=== PATIENT | male | born 1955 | race Caucasian/White ===

== ENCOUNTER → 2018-02-07 01:48 | Outpatient (CLI) | payer BC, SELFPAY ==
[2018-02-07 10:43] LABS: Glucose 96 mg/dL (70-100)
== END ==
PROVIDERS: PCP Family Medicine; Visit Provider Family Medicine
DX: E74.39 Other disorders of intestinal carbohydrate absorption (principal)
CPT/HCPCS: 36415; 82947

== ENCOUNTER 2018-05-02 09:27 | Day surgery (SDC) | payer BC, SELFPAY ==
[2018-05-02 09:43] VITALS: BP 133/83; PULSE 58; RESP 16; TEMP 36.6; O2SAT 98
[2018-05-02] MEDS: Lactated Ringers 1,000 ML 80 ML IV (10:15)
[2018-05-02] MEDS: Bupivacaine 0.25% Pres-Free 30 ML VIAL (12:26)
[2018-05-02 12:39] VITALS: BP 141/82; PULSE 57; RESP 11; TEMP 36.5; O2SAT 99
[2018-05-02 12:44] VITALS: BP 146/74; PULSE 63; RESP 17; TEMP 36.5; O2SAT 95
--- NOTE | 2018-05-02 12:46 | W.PM.DSUDISC ---
Discharge Plan Disposition Patient Disposition: HOME Condition: Good Discharge Details Reason For Visit: R Knee Arthrofibrosis Attending Provider: Dom Khan Primary Care Provider: Ajit Galo Home Meds and New Rx's Prescriptions: New ibuprofen 600 mg tablet 600 mg PO TID PRNQty: 90 RF: 3 acetaminophen 500 mg capsule 1,000 mg PO Q8H PRN (Reason: pain) Qty: 90 RF: 0 oxycodone 5 mg tablet 5 mg PO Q4H Qty: 12 RF: 0 Continue multivitamin 1 EACH tablet 1 tab PO daily prn RF: 0 nitroglycerin [Nitrostat] 0.4 MG tablet, sublingual 0.4 mg Sublingual q 5 mins MDD 3 PRNQty: 25 RF: 0 lisinopril 5 MG tablet 1 tab PO DAILY Qty: 90 RF: 4 Metoprolol Succinate 50 MG TAB.ER.24H 1 tab PO DAILY Qty: 90 RF: 4 atorvastatin 80 MG tablet 1 tab PO DAILY Qty: 90 RF: 3 aspirin [Aspirin Low-Strength] 81 MG tablet,chewable 1 tab PO BID Qty: 80 RF: 3 acetaminophen [Mapap Extra Strength] 500 MG tablet 1,000 mg PO Q8H Qty: 100 RF: 3 Discharge Instructions Stand Alone Forms: Erin Knee Arthroscopy Activity:: Elevate Remove Dressings/Wound Care:: 72 hours Shower/Bathe:: 72 hours Diet:: As Tolerated Discharge Orders Discharge Orders: Discharge Order (Routine); Ordered 05/02/18 Ordered By: Dom Khan DS: Diagnosis Discharge Diagnosis (1) Rupture of right quadriceps tendon: Status: Acute (2) Arthrofibrosis of knee joint: Status: Acute
[2018-05-02 12:49] VITALS: BP 126/75; PULSE 64; RESP 14; TEMP 36.5; O2SAT 97
[2018-05-02 13:04] VITALS: BP 135/75; PULSE 53; RESP 11; TEMP 36.5; O2SAT 100
[2018-05-02 13:54] VITALS: BP 124/77; PULSE 60; RESP 16; TEMP 36.3; O2SAT 95
--- NOTE | 2018-05-04 14:23 | ROE_ITS ---
DATE OF SURGERY: May 02, 2018 PREOPERATIVE DIAGNOSIS: Arthrofibrosis of the right knee. POSTOPERATIVE DIAGNOSIS: Same. SURGERY: Arthroscopic synovectomy, lysis of adhesions, and manipulation under anesthesia. SURGEON: Dom Khan M.D. ANESTHESIA: General. FINDINGS: There was significant scar tissue seen within the right knee. This scar tissue was resect ed. Preoperative flexion was about 90 to 95 degrees at most and the postoperative flexion was 115 de grees. ESTIMATED BLOOD LOSS: 10 cc COMPLICATIONS: None. DISPOSITION: The patient was awakened from anesthesia and taken to PACU in a stable condition. INDICATION FOR PROCEDURE: Ortiz is a 63-year-old who I performed a knee replacement on some months ag o. In his recovery he ruptured his quadriceps. This was treated with surgical repair. Unfortunatel y, his range of motion suffered and he has a stiff knee in flexion. He tried multiple rounds of Phys ical Therapy but was still unable to obtain the flexion he desired. Therefore, I offered an arthrosc opic release of adhesions with manipulation. I discussed the risks of the procedure to include bleed ing, infection, pain, stiffness, damage to nerves and vessels, and blood clot. Despite these risks, he elected to proceed. PROCEDURE DESCRIPTION: Ortiz was greeted in the preoperative holding area. Identity was confirmed an d the correct side was identified and marked. The consent was reviewed with the patient and signed. The History and Physical was updated. He was taken back to the Operating Room and placed in a supin e position. A general anesthetic was administered. Preoperative range of motion was tested and he h ad about 90-95 degrees of flexion at most passively. I then prepped the right leg with ChloraPrep an d draped it in a standard fashion. Prophylactic antibiotics in the form of cefazolin were given. A time-out was performed for safe surgery. A standard lateral portal was then made for the scope. This was taken down sharply into the knee. I was able to get visualization of the knee which did show a significant amount of adhesions and synov itis within the knee itself. A superolateral portal was then made with a spinal needle. This provid ed an access point for egress of fluid but also for a working portal. Using a shaver I debrided down the anterior soft tissues to expose the polyethylene anteriorly and within the medial and lateral gu tters. An electrocautery device was also used to complete some of this debridement. I then worked c ircumferentially around the patella to clear off all the way down to the patellar edges. Finally, I moved into the suprapatellar pouch. There was a wall of adhesions seen between the undersurface of t he quadriceps mechanism as well as the anterior femur. Using electrocautery I transected this tissue and reestablished the suprapatellar pouch. Excess synovium was removed in this area as well. Any b ands of adhesions were also resected. After this was completed there were no signs of other adhesive tissues. The scope was then removed. With relaxation onboard I then performed a manipulation. I w as able to get him to 105 degrees easily. With some effort I was able to get him to 115 and then 120 degrees. After we were completed, 115 degrees was definitely achievable. The wounds were then clos ed with #4-0 nylon. At the end of the case all counts were correct. He was transferred back to the PACU in a stable condition.
== END 2018-05-02 14:25 | disposition home or self-care (01) ==
PROVIDERS: PCP Family Medicine; Visit Provider Student in an Organized Health Care Education/Training Program
PROC: (CPT 29870; principal; 2018-05-02 09:45)
PROC: (CPT 27570; 2018-05-02 09:45)
DX: M24.661 Ankylosis, right knee (principal); Z96.651 Presence of right artificial knee joint; S76.111S Strain of right quadriceps muscle, fascia and tendon, sequela; X58.XXXS Exposure to other specified factors, sequela
CPT/HCPCS: 29876; 27570; J0690; J1100; J1885; J2250; J2405

== ENCOUNTER 2018-07-23 09:30 | Outpatient (CLI) | payer BC, SELFPAY ==
[2018-07-23 12:08] LABS: CREATININE 1.04 mg/dL (0.70-1.30); Cholesterol 111 mg/dL (50-200); HDL Cholesterol 44 mg/dL (40-60); LDL CHOLESTEROL 54 mg/dL (<100); Potassium 4.7 mmol/L (3.5-5.1); Triglyceride 86 mg/dL (30-150)
[2018-07-24 08:48] LABS: PSA, Screening 1.4 ng/ml (0-4.5)
[2018-07-26 11:50] LABS: Testosterone, Free 4.95 ng/dL (3.67-13.9); Testosterone, Total 330 ng/dL (240-950)
== END 2018-07-23 09:50 ==
PROVIDERS: PCP Family Medicine; Visit Provider Family Medicine
DX: Z00.00 Encounter for general adult medical examination without abnormal findings
CPT/HCPCS: 36415; 80061; 83721; 84153; 84402; 84403; 82565; 84132

== ENCOUNTER 2018-08-18 15:14 | Outpatient (CLI) | payer BC, SELFPAY ==
--- NOTE | 2018-08-18 15:10 | DI.RAD_ITS ---
SYMPTOM/DIAGNOSIS: RT TKA, F/U RIGHT KNEE: Two views. Comparison is made with 10/04/17. There are again seen post surgical changes of a right total knee replacement. No evidence of hardware failure is seen. The bones are intact. IMPRESSION: Stable right TKR.
== END 2018-08-18 15:34 ==
PROVIDERS: PCP Family Medicine; Visit Provider Physician Assistant
DX: Z96.651 Presence of right artificial knee joint (principal); Z47.1 Aftercare following joint replacement surgery
CPT/HCPCS: 73560

== ENCOUNTER 2019-07-31 00:10 | Outpatient (CLI) | payer OTHER, SELFPAY ==
[2019-07-31 17:09] LABS: CREATININE 1.09 mg/dL (0.70-1.30); Potassium 4.6 mmol/L (3.5-5.1)
== END 2019-07-31 00:30 ==
PROVIDERS: PCP Family Medicine; Visit Provider Family Medicine
DX: Z00.00 Encounter for general adult medical examination without abnormal findings (principal)
CPT/HCPCS: 36415; 82565; 84132

== ENCOUNTER 2019-11-24 09:40 | Outpatient (CLI) | payer OTHER, SELFPAY ==
[2019-11-25 02:33] LABS: COVID-19 RT-PCR UVMMC Result Negative (Negative)
== END 2019-11-24 10:00 ==
PROVIDERS: PCP Family Medicine; Visit Provider Surgery
DX: Z11.51 Encounter for screening for human papillomavirus (HPV) (principal)
CPT/HCPCS: U0003

== ENCOUNTER 2019-11-27 07:40 | Day surgery (SDC) | payer OTHER, SELFPAY ==
--- NOTE | 2019-11-27 05:46 | W.PM.HP.N ---
Date of service: 11/27/19 Time of Service: 09:08 Assessment and Plan Assessment and plan (1) Encounter for screening colonoscopy: Status: Acute Assessment and plan: I advised colonoscopy. The procedure was described including the risks of perforation with need for surgery or bleeding. Prep instructions discussed. Patient agrees to proceed. History of Present Illness Narrative: Presents to discuss screening colonoscopy, no prior colonoscopy. Has bleeding about once every 6 months. Streak on stool. No pain with BM. No prior treatment. No change in bowel habits. No abdominal pain. Will have some dysphagia for bread for the last few months with eating fast. Has to drink water. Occasional heartburn, rare TUMS usage before bed. No prior EGD No FH colon or esophageal cancer. Last saw cardiology in 2013, stress test okay at that time. Has not used nitro for a few years. Does not wear CPAP on a regular basis. Works [place] [employer] Review of Systems All systems reviewed & are unremarkable except as noted in HPI and below PFSH Medical History STELLA-inhibitor cough (Acute) H/O non-ST elevation myocardial infarction (NSTEMI) (Chronic 12/26/13) Obstructive sleep apnea (Chronic) Well adult (Acute) Surgical History (Updated 11/27/19 @ 07:57 by David Shankar) Debridement, Limited RIGHT KNEE History of coronary artery stent placement (Chronic) 2013 Repair of right knee quadriceps DR. JOHNSON-10/08/17 Replacement of total knee joint 08/28/17 (R) Tonsillectomy and adenoidectomy VARICOCELE REPAIR Family History Mother Diabetes Essential hypertension Heart disease Father , AGE 77 Cancer Sister Diabetes Heart disease Sister No problems noted. Sister No problems noted. Sister No problems noted. Brother , AGE 57 No problems noted. Brother No problems noted. Son No problems noted. Son No problems noted. Daughter No problems noted. Maternal Grandfather No problems noted. Paternal Grandfather No problems noted. Maternal Grandmother No problems noted. Paternal Grandmother No problems noted. Social History Smoking/Tobacco Use Status: Former Tobacco Use Quit Date: 07/01/99 Tobacco: How many years used: 25 Smokeless tobacco user: chewing tobacco Second Hand Exposure: Yes Alcohol Intake: current Alcohol Intake frequency: a few times a week Alcohol type: beer and wine Drug use: Rarely Substance use type: marijuana Caregiver/Support person: No Household members: spouse Housing: house Pets and animals: No Sexually active: No Do you think of yourself as: straight/heterosexual Current gender identity: male What is your relationship status?: How often do you talk on the phone with friends or family?: once per week How often do you get together with friends or relatives?: once per week How often do you attend presybeterian or restorationism services?: 1-3 times per year Do you belong to any clubs or organized social groups?: yes Panel score (0-1 are the most socially isolated patients): 2 What type of physical activity do you participate in: decline to answer Duration: decline to answer Frequency: decline to answer Nicole/Zoroastrianism: Religious Special nicole needs: No Seatbelt use: always Drive intox or ride w/intox yard driver: No Do you feel safe at home: Yes Do you feel safe in your relationship?: Yes Meds Home Medications and Allergies Home Medications Medication Instructions Recorded Confirmed Type multivitamin 1 tab PO daily prn 01/27/14 11/27/19 History ibuprofen 600 mg PO TID PRN #90 tab 05/02/18 11/27/19 Rx aspirin 81 mg chewable tablet 1 tab PO DAILY tab 07/24/19 11/27/19 History diphenhydramine 25 1 tab PO QHS PRN 07/24/19 11/27/19 History mg-acetaminophen 500 mg tablet glucosamine 375 [id number]-[id number]-ktk 2 tab PO DAILY tab 07/24/19 11/27/19 History no1 500 mg-C 15 mg-rosaline 0.5 mg tablet atorvastatin 80 mg tablet 80 mg PO DAILY #90 tab-cap 09/24/19 11/27/19 Rx metoprolol succinate 50 mg 50 mg PO DAILY #90 tab 09/24/19 11/27/19 Rx tablet,extended release 24 hr nitroglycerin 0.4 mg sublingual 0.4 mg SUBLINGUAL q 5 mins PRN #25 09/24/19 11/24/19 Rx tablet tab MDD 3 telmisartan 40 mg tablet 40 mg PO DAILY #90 tab 09/24/19 11/27/19 Rx bisacodyl 5 mg tablet,delayed 5 mg PO ONCE #4 tab 11/09/19 11/27/19 Rx release polyethylene glycol 3350 17 238 g PO ONCE #238 gm 11/09/19 11/27/19 Rx gram/dose oral powder Allergies Allergy/AdvReac Type Severity Reaction Status Date / Time lisinopril AdvReac Mild cough Verified 11/27/19 07:59 Exam Const General: healthy appearing and not in acute distress Nutritional Appearance: well nourished Orientation: oriented x3 HENMT Head: normal to inspection Eyes Sclera: sclerae normal Pupils: PERRL Neck Neck: no lymphadenopathy Resp Effort & Inspection: normal respiratory effort Auscultation: clear to auscultation bilaterally and no wheezes Cardio Rate: regular rate Rhythm: regular rhythm GI Inspection: non-distended Palpation: soft, no hepatosplenomegaly, no hernias and nontender Skin General skin exam: no rashes or lesions noted Neuro General: patient alert Cognition: normal cognition Extrem General: normal to inspection Psych Affect: normal affect Attitude: cooperative COVID-19 Screening In the past 14 days, have you traveled outside of [place] or [place]?: NO
[2019-11-27 07:52] VITALS: BP 137/81; PULSE 87; RESP 18; TEMP 36.4; O2SAT 95
[2019-11-27] MEDS: Lactated Ringers 1,000 ML 80 ML IV (08:18)
--- NOTE | 2019-11-27 09:09 | W.PM.DSUDISC ---
Discharge Plan Disposition Patient Disposition: HOME Condition: Good Discharge Details Reason For Visit: SCREENING Attending Provider: Lizzy Wilcox Primary Care Provider: Ajit Galo Home Meds and New Rx's Prescriptions: Continued diphenhydramine-acetaminophen [Tylenol PM Extra Strength] 25-500 mg tablet 1 tab PO QHS PRNRF: 0 [id number]-rosaline-bor [id number] mg tablet 2 tab PO DAILY RF: 0 aspirin [Aspirin Low-Strength] 81 mg tablet,chewable 1 tab PO DAILY RF: 0 multivitamin 1 EACH tablet 1 tab PO daily prn RF: 0 atorvastatin 80 mg tablet 80 mg PO DAILY Qty: 90 RF: 4 metoprolol succinate 50 mg tablet extended release 24 hr 50 mg PO DAILY Qty: 90 RF: 3 nitroglycerin [Nitrostat] 0.4 mg tablet, sublingual 0.4 mg Sublingual q 5 mins MDD 3 PRN (Reason: chest pain) Qty: 25 RF: 0 telmisartan 40 mg tablet 40 mg PO DAILY Qty: 90 RF: 3 ibuprofen 600 mg tablet 600 mg PO TID PRNQty: 90 RF: 3 Discontinued polyethylene glycol 3350 17 gram/dose powder 238 g PO ONCE Qty: 238 RF: 0 bisacodyl [Dulcolax (bisacodyl)] 5 mg tablet,delayed release (DR/EC) 5 mg PO ONCE Qty: 4 RF: 0 Discharge Instructions Additional Instructions: Findings: Your colonoscopy was normal. Follow up: Plan for routine screening in 10 years or sooner if symptoms arise. Please call if you develop: fevers >101.5 Nausea or Vomiting Abdominal pain that is not transient DAY SURGERY UNIT POST COLONOSCOPY INSTRUCTIONS 1. Because there will be medication in your system for the next 24 hours, you may feel a little sleepy. Your coordination will be affected. Therefore: a. Do not drive or operate dangerous equipment for 24 hours. b. Do not drink alcohol beverages for 24 hours (not even beer). c. Plan to go home and rest for the day. 2. Generally there are no restrictions on your activity after a day or so has gone by, but you may feel a bit fatigued for a few days. 3 After you arrive home you may have a light meal and return to a normal diet as you can tolerate it without feeling sick to your stomach. 4. After surgery, you may feel pain or discomfort. This should be only transient, but if it persists please contact your doctor. 5. If there are any questions regarding the findings of your procedure, please feel free to contact your doctor. 6. If you are unable to contact your doctor with a problem, contact the hospital at [phone]. 7. Continue all your regular medications unless directed otherwise. I understand the above instructions and have no questions. Signature of Patient or Responsible Adult Escort Date/Time Name of Responsible Adult Escort Signature of Nurse Date/Time Stand Alone Forms: Ashish Rodriguez (TIM) Activity:: Activity as Tolerated Diet:: As Tolerated Discharge Orders Discharge Orders: Discharge Order (Routine); Ordered 11/27/19 Ordered By: Lizzy Wilcox DS: Diagnosis Discharge Diagnosis (1) Encounter for screening colonoscopy: Status: Acute
--- NOTE | 2019-11-27 09:10 | W.COLOREPORT ---
Date of service: 11/27/19 Time of Service: 10:12 Colonoscopy Report Date of procedure: 11/27/19 Pre-op diagnosis general: Screening Post-op diagnosis procedure note: other (Normal colon) Procedure: Colonoscopy Surgeon: Lizzy Wilcox Anesthesia proc note operative: MAC Disposition: same day Indications: This patient presents for his first screening colonoscopy. He is asymptomatic and has no FH of colon cancer. Procedure Description: The patient was placed in the left Nelson position. Propofol was titrated to sedation. Digital rectal examination revealed no abnormalities. The scope was advanced to the cecum without difficulty. The ileocecal valve and appendiceal orifice were clearly identified. The prep was good. The scope was slowly withdrawn over the course of greater than 6 minutes with no abnormalities seen in the ascending, transverse, descending, sigmoid colon or rectum including on retroflexed view. The patient tolerated the procedure well and was stable to recovery. Plan for routine screening colonoscopy in 10 years or sooner if symptoms indicate.
[2019-11-27 10:45] VITALS: BP 115/75; PULSE 69; RESP 16; TEMP 36.1; O2SAT 95
== END 2019-11-27 11:00 | disposition home or self-care (01) ==
PROVIDERS: PCP Family Medicine; Visit Provider Surgery
PROC: 0DJD8ZZ Inspection of Lower Intestinal Tract, Via Natural or Artificial Opening Endoscopic (ICD-10-PCS; CPT 45378; principal; 2019-11-27 09:30)
DX: Z12.11 Encounter for screening for malignant neoplasm of colon (principal); G47.33 Obstructive sleep apnea (adult) (pediatric)
CPT/HCPCS: 45378; NC; J2001

== ENCOUNTER 2020-08-09 02:29 | Outpatient (CLI) | payer OTHER, SELFPAY ==
[2020-08-09 09:04] LABS: Calculated LDL 51 mg/dL (<100); Cholesterol 112 mg/dL (<200); Glucose 98 mg/dL (74-106); HDL Cholesterol 46 mg/dL (40-60); Potassium 4.5 mmol/L (3.5-5.1); Triglyceride 77 mg/dL (<150)
[2020-08-09 17:01] LABS: PSA, Screening 1.1 ng/mL (0.0-4.5)
== END 2020-08-09 02:30 | disposition home or self-care (01) ==
LOC: LBO 02:29
PROVIDERS: PCP Family Medicine; Visit Provider Family Medicine
DX: I10 Essential (primary) hypertension (principal); E78.5 Hyperlipidemia, unspecified; R73.9 Hyperglycemia, unspecified; Z12.5 Encounter for screening for malignant neoplasm of prostate
CPT/HCPCS: 36415; 80061; 82947; 84153; 82565; 84132

== ENCOUNTER 2021-04-20 09:55 | Outpatient (CLI) | payer OTHER, SELFPAY ==
--- NOTE | 2021-04-20 09:45 | DI.RAD_ITS ---
Exam(s) XR KNEE LT 3V AP,LAT,ERIN EXAM: XR KNEE LT 3V AP,LAT,ERIN CLINICAL HISTORY: L knee pain. TECHNIQUE: 2D digital imaging was performed. COMPARISON: No exams were available for comparison FINDINGS: There is no evidence of fracture nor obvious joint effusion. However, there are significant degenera tive changes with advanced narrowing of the medial compartment. Less narrowing of the lateral compar tment but there are marginal osteophytes in the lateral compartment. Patellofemoral compartment exhi bits moderate degenerative changes. IMPRESSION: Osteoarthritic degenerative changes in the left knee, as described above. No obvious joint effusion. DATA REPOSITORY: RADIATION DOSE DELIVERED:
== END 2021-04-20 09:56 | disposition home or self-care (01) ==
LOC: DIORS 09:55
PROVIDERS: PCP Family Medicine; Referring Provider Family Medicine; Visit Provider Physician Assistant
DX: M25.562 Pain in left knee (principal); M17.12 Unilateral primary osteoarthritis, left knee
CPT/HCPCS: 73562

== ENCOUNTER 2021-09-08 02:02 | Outpatient (CLI) | payer BC, SELFPAY ==
--- NOTE | 2021-09-08 06:15 | DI.US_ITS ---
APPROVED REPORT EXAM: Comprehensive 2D, Doppler, and color-flow Echocardiogram Patient Location: Out-Patient Construction Secretary: Neha Spencer RDCS (AE) Indications: CAD Other Information Study Quality: Adequate Conclusion Normal left ventricular wall thickness and chamber size. Estimated ejection fraction is 60%. Wall m otion is normal Normal right ventricular size and systolic function Both atria are normal in size Normal aortic valve without stenosis or regurgitation Mildly thickened mitral leaflets with trace regurgitation Normal tricuspid valve with trace regurgitation. Estimated right ventricular systolic pressure is 32 mmHg Wall motion Left Ventricle The left ventricle is normal size. The left ventricular systolic function is normal. The left ventric ular ejection fraction is within the normal range. There is normal left ventricular wall thickness. T here is normal LV segmental wall motion. There is no ventricular septal defect visualized. LVEF is 59 %. Right Ventricle The right ventricle is normal size. The right ventricular systolic function is normal. The RVSP is 31 .6 mmHg. Atria The left atrium size is normal. The right atrium size is normal. The interatrial septum is intact wit h no evidence for an atrial septal defect. Aortic Valve The aortic valve is normal in structure. Aortic valve is trileaflet. There is no aortic valvular sten osis. No aortic regurgitation is present. Mitral Valve Mitral valve leaflets are mildly thickened. No evidence of mitral valve stenosis. Trace mitral regurg itation. Tricuspid Valve The tricuspid valve is normal in structure. There is no tricuspid valve stenosis. Trace tricuspid reg urgitation. Pulmonic Valve The pulmonary valve is normal in structure. There is no pulmonic valvular stenosis. There is no pulmo paris valvular regurgitation. Great Vessels The aortic root is normal in size. The ascending aorta is normal in size. IVC is normal in size and c ollapses >50% with inspiration. Pericardium There is no pericardial effusion. 2D Dimensions IVSD d PLAX 0.96 cm M: 0.6-1.2 LV Vol A2C d MOD 117.6 mL LVPW d PLAX 0.96 cm M: 0.6 - 1.2 LV Vol A4C d MOD 148.0 mL LVID d PLAX 4.79 cm M: 4.2 - 5.8 LA vol/ BSA A2C s A-L 23.8 mL/m2 LVDs 3.15 cm M: 2.5 - 4.0 LA vol/ BSA A4C s A-L 27.4 mL/m2 Ao Root d 2.98 cm M: 3.1 - 3.7 LA Vol/ BSA Biplane s A-L 26.1 mL/m2 RA Area A4C 17.85 cm2 LA Area A4C s MOD 21.90 cm2 RA Vol/ BSA A4C s A-L 21.6 mL/m2 LA Area A2C s MOD 19.95 cm2 Ao Asc Diam d 3.38 cm M: 2.6 - 3.4 LV EF A4C MOD 58.9 % LV EF Teichholz 62.2 % LV EF A2C MOD 58.9 % LVEF (Kaye's) 60.85 % M: 52 - 72 LV EF Biplane MOD 60.8 % LV Volume 97.76 mL M: 62 - 150 SV 84.09 mL LV Volume Index 40.56 mL/m2 M: 34 - 74 SV Index 34.88 mL/m2 LV Vol Biplane MOD 138.2 mL FS 33.50 % M-Mode TAPSE 2.90 cm (M/F) >1.7 LV Diastology MV E' medial 0.095 (>0.07 m/s) E/A Ratio 1.1 LV E/e MED 9.95 (<14) MV E Vmax 0.95 (0.4-1.3 m/s) MV E' lateral 0.103 (>0.1 m/s) MV A Vmax 0.85 (0.4-1.3 m/s) LV E/e LAT 9.25 (<14) MV E/A Ratio 1.11 MV E/E' medial 9.98 MV E/E' lateral 9.27 Aortic Valve LVOT Area 3.69 cm2 AoV Area Vmax 2.84 cm2 LVOT Vmax 1.21 m/s AoV Area/ BSA (Vmax) 1.18 cm2/m2 LVOT Mean Negro. 0.76 m/s FLORECITA Mean Negro. 2.71 cm2 LVOT Peak Grad 5.9 mmHg FLORECITA Mean Negro. Index 1.12 cm2/m2 LVOT Mean Grad 2.8 mmHg LVOT VTI 0.279 m LVOT Diam s 2.15 cm AoV Vmax 1.58 m/s Velocity Ratio 0.76 AoV Mean Negro. 1.04 m/s AoV Peak Grad 9.9 mmHg LVOT SV 102.75 mL AoV Mean Grad 5.0 mmHg AoV VTI 0.310 m AoV Area VTI 3.31 cm2 AoV Area/ BSA (VTI) 1.37 cm/m2 Mitral Valve MV DT 206 (160-240 msec) MV PHT 60 msec MV Area PHT 3.69 cm2 MV VTI 0.359 m MV Area VTI 2.86 (4.0-6.0 cm2) Pulmonary Valve PV Vmax 1.65 (0.5-1.5 m/s) RVOT Peak Gr. 2.89 mmHg PV Peak Grad 10.8 mmHg RVOT Mean Gr. 1.45 mmHg PV Mean Grad 5.2 mmHg RVOT VTI 0.201 m PV VTI 0.317 m RVOT Vmax 0.85 m/s Tricuspid Valve TR Peak Grad 28.5 mmHg TR Vmax 2.58 m/s RA Pressure 3.00 mmHg RVSP (TR) 31.6 mmHg
== END 2021-09-08 02:22 ==
PROVIDERS: PCP Family Medicine; Visit Provider Family Medicine
DX: I25.10 Atherosclerotic heart disease of native coronary artery without angina pectoris (principal)
CPT/HCPCS: 93306

== ENCOUNTER 2021-09-08 04:15 | Outpatient (CLI) | payer BC, SELFPAY ==
[2021-09-08 08:02] LABS: Calculated LDL 55 mg/dL (<100); Cholesterol 112 mg/dL (<200); HDL Cholesterol 39 mg/dL (40-60); Potassium 4.6 mmol/L (3.5-5.1); Triglyceride 90 mg/dL (<150)
== END 2021-09-08 04:16 | disposition home or self-care (01) ==
LOC: LBO 04:15
PROVIDERS: PCP Family Medicine; Visit Provider Family Medicine
DX: I10 Essential (primary) hypertension (principal); E78.5 Hyperlipidemia, unspecified
CPT/HCPCS: 36415; 80061; 82565; 84132

== ENCOUNTER → 2021-11-17 13:33 | Outpatient (CLI) | payer BC, SELFPAY ==
--- NOTE | 2021-11-17 14:14 | DI.RAD_ITS ---
Exam(s) XR CHEST 2V PA LATERAL EXAM: XR CHEST 2V PA LATERAL CLINICAL HISTORY: cough R05.9 SOB R06.02 TECHNIQUE: 2D digital imaging was performed of the chest. Two images were obtained. PA and lateral views were obtained. COMPARISON: CR PORTABLE CHEST ONE VIEW from 04/21/2014 FINDINGS: MEDIASTINUM: Normal. HEART: Normal. PULMONARY VASCULATURE: Normal. LUNGS: Clear. PLEURAL SPACE: No pleural effusion or pneumothorax. BONE:Within normal limits for the patient's age. OTHER FINDINGS:Normal. IMPRESSION: No acute pulmonary findings. DATA REPOSITORY: RADIATION DOSE DELIVERED:
== END ==
PROVIDERS: PCP Family Medicine; Visit Provider Nurse Practitioner Family
DX: R06.02 Shortness of breath (principal); R05.8 Other specified cough
CPT/HCPCS: 71046

== ENCOUNTER 2022-08-06 11:53 | Outpatient (CLI) | payer BC, SELFPAY ==
--- NOTE | 2022-08-06 11:30 | DI.RAD_ITS ---
Exam(s) XR STANDING ALIGNMENT EXAM: XR STANDING ALIGNMENT CLINICAL HISTORY: pre op. TECHNIQUE: 2D digital imaging was performed. Four images were obtained. COMPARISON: CR BONE LENGTH from 04/05/2017 CR XR knee RT 2V AP,lat from 08/18/2018 FINDINGS: BONES: The hips are well maintained. The patient has a right total knee replacement which appears in good position. There is moderately severe narrowing in the medial femoral tibial joint of the left knee. Periarticular spurring is seen both medially and laterally. The ankles are well maintained.Th ere is no significant leg length discrepancy. SOFT TISSUE: Normal. IMPRESSION: Degenerative changes in the left knee. DATA REPOSITORY: RADIATION DOSE DELIVERED:
== END 2022-08-06 11:54 | disposition home or self-care (01) ==
LOC: DIORS 11:53
PROVIDERS: PCP Family Medicine; Referring Provider Family Medicine; Visit Provider Student in an Organized Health Care Education/Training Program
DX: M25.562 Pain in left knee (principal); M17.12 Unilateral primary osteoarthritis, left knee; Z96.651 Presence of right artificial knee joint
CPT/HCPCS: 77073

== ENCOUNTER 2022-08-28 02:29 | Outpatient (CLI) | payer BC, SELFPAY ==
[2022-08-28 09:05] LABS: HCT 39.4 % (40.0-50.0); HGB 12.8 g/dL (13.5-17.5); MCH 29.1 pg (27.0-33.0); MCHC 32.5 % (32.0-36.0); MCV 90 fL (80-95); MPV 9.2 fL (8.0-11.0); Platelet Count 269 10^3/uL (130-400); RDW 12.7 % (11.8-14.1); RDW-SD 42.1 fL; WBC 5.87 10^3/uL (4.4-10.8)
[2022-08-28 09:19] LABS: Anion Gap 6.9 mmol/L (3-11); BUN 17 mg/dL (7-18); CO2 29.1 mmol/L (21.0-32.0); CREATININE 1.1 mg/dL (0.70-1.30); Calcium 9.1 mg/dL (8.5-10.1); Chloride 104 mmol/L (98-107); Glucose 109 mg/dL (74-106); Potassium 4.2 mmol/L (3.5-5.1); Sodium 140 mmol/L (136-145)
== END 2022-08-28 02:30 | disposition home or self-care (01) ==
LOC: LBO 02:29
PROVIDERS: PCP Family Medicine; Visit Provider Student in an Organized Health Care Education/Training Program
DX: M17.12 Unilateral primary osteoarthritis, left knee (principal); Z01.818 Encounter for other preprocedural examination
CPT/HCPCS: 36415; 80048; 85027

== ENCOUNTER 2022-09-04 08:35 | Day surgery (SDC) | payer BC, SELFPAY ==
[2022-09-04] VITALS (13 sets, daily range): BP systolic 102–146; BP diastolic 54–83; PULSE 68–85; RESP 14–22; TEMP 36.2–36.6; O2SAT 93–98; BMI 47.7
--- NOTE | 2022-09-04 06:35 | W.ANESPRE ---
General Info Date of Service Date Performed: 09/04/22 Height: 5 ft 8 in Weight: 142.428 kg Body Mass Index (BMI): 47.7 Surgical Procedure: Operation Date: 09/04/22 11:25 Proposed Procedure Side Surgeon p Knee Total Arthroplasty, Cementless Fixed Bearing, CR Left Dom Johnson MD Meds Allergies and Home Medications Allergies Allergy/AdvReac Type Severity Reaction Status Date / Time lisinopril AdvReac Mild cough Verified 09/04/22 08:46 chloraprep Allergy Severe Skin Rash Uncoded 09/04/22 08:46 Home Medication Medication Instructions Recorded multivitamin 1 tab PO daily prn 01/27/14 diphenhydramine 25 1 tab PO QHS PRN 07/24/19 mg-acetaminophen 500 mg tablet (Tylenol PM Extra Strength) glucosamine 375 [id number]-[id number] 2 tab PO DAILY 07/24/19 no1 500 mg-C 15 mg-rosaline 0.5 mg tablet nitroglycerin 0.4 mg sublingual 0.4 mg sublingual q 5 mins PRN 10/27/21 tablet (Nitrostat) chest pain #25 tabs atorvastatin 80 mg tablet 80 mg PO DAILY #90 tab-caps 08/16/22 metoprolol succinate 50 mg 50 mg PO DAILY #90 tabs 08/16/22 tablet,extended release 24 hr tamsulosin 0.4 mg capsule 0.4 mg PO DAILY #30 caps 08/16/22 telmisartan 40 mg tablet 40 mg PO DAILY #90 tabs 08/16/22 acetaminophen 500 mg tablet 1,000 mg PO Q8H PRN pain #90 tabs 09/04/22 aspirin 81 mg tablet,delayed 81 mg PO BID 30 days #60 tabs 09/04/22 release celecoxib 100 mg capsule (Celebrex) 100 mg PO BID 30 days #60 caps 09/04/22 dexamethasone 4 mg tablet 4 mg PO DAILY #2 tabs 09/04/22 docusate sodium 100 mg capsule 100 mg PO BID #30 caps 09/04/22 (Colace) oxycodone 5 mg tablet 5 mg PO Q4H PRN severe 09/04/22 post-operative pain #18 tabs pantoprazole 40 mg tablet,delayed 40 mg PO DAILY #30 tabs 09/04/22 release Current Visit Medications: Current Medications Generic Name Dose Route Start Last Admin Trade Name Freq PRN Reason Stop Dose Admin Acetaminophen 1,000 mg 09/04/22 06:00 Acetaminophen 500 Mg Tab PO 09/04/22 16:00 PREOP JUAN Celecoxib 400 mg 09/04/22 06:00 Celecoxib 200 Mg Cap PO 09/04/22 16:00 PREOP JUAN Gabapentin 300 mg 09/04/22 06:00 Gabapentin 300 Mg Cap PO 09/04/22 16:00 PREOP JUAN Tranexamic Acid 1,000 mg/ 60 mls @ 360 mls/hr 09/04/22 06:00 Sodium Chloride IVPB 09/04/22 16:00 PREOP JUAN Ringer's Solution 1,000 mls @ 80 mls/hr 09/04/22 06:00 IV 10/03/22 23:59 INFUSION JUAN Cefazolin Sodium 3,000 mg/ 100 mls @ 200 mls/hr 09/04/22 06:00 Sodium Chloride IVPB 09/04/22 16:00 PREOP [facility] IV Miscellaneous Supplies 1 each 09/04/22 06:00 Iv Access IV 10/03/22 23:59 DIRECTED JUAN Sodium Chloride 0 ml 09/04/22 06:00 Normal Saline Flush 10 Ml Syr IV 10/03/22 23:59 PRN PRN Sodium Chloride 0 ml 09/04/22 06:00 Normal Saline 10 Ml Vial IJ 10/03/22 23:59 DIRECTED PRN Sterile Water 0 ml 09/04/22 06:00 Water,Injection,Sterile 10 Ml Vial IJ 10/03/22 23:59 DIRECTED PRN PFSH Active Problems Active Problems: Problem Status Onset Code Hyperlipidemia E78.5 Hypertension I10 BPH w urinary obs/LUTS N40.1, N13.8 Achilles tendonitis M76.60 Primary osteoarthritis of left knee M17.12 Skin tag, acquired L91.8 Tinnitus, bilateral H93.13 Sensorineural hearing loss of both ears H90.3 Chest pain 04/21/14 R07.9 Coronary artery disease 04/21/14 I25.10 Morbid obesity E66.01 H/O surgical procedure Z98.89 GERD (gastroesophageal reflux disease) K21.9 Hard of hearing H91.90 Right shoulder pain M25.511 History of tobacco use Z87.891 Status post total right knee replacement Z96.651 Dizziness R42 Encounter for screening colonoscopy Z12.11 H/O non-ST elevation myocardial infarction (NSTEMI) 12/26/13 I25.2 Obstructive sleep apnea G47.33 Well adult STELLA-inhibitor cough R05, T46.4X5A Medical History Medical History Torn meniscus Surgical History Surgical History Debridement, Limited RIGHT KNEE scope 1979 History of coronary artery stent placement 2013 Repair of right knee quadriceps DR. JOHNSON-10/08/17 Replacement of total knee joint 08/28/17 (R) Status post arthroscopy of right knee Arthroscopic synovectomy, lysis of adhesions, and manipulation under anesthesia DOS: 05/02/18 Status post scrotal varicocelectomy Status post tonsillectomy and adenoidectomy VARICOCELE REPAIR Tobacco Smoking/Tobacco Use Status: Former Tobacco Use Passive smoking exposure: Yes Counseling given: other Alcohol Alcohol Intake: current Alcohol intake frequency: a few times a week Alcohol type: wine Substance Use Counseling provided: none Vital Signs and Lab Results Vital Signs Most Recent Vital Signs in EMR: Temp Pulse Resp BP Pulse Ox 36.3 C L 68 16 123/79 98 09/04/22 08:54 09/04/22 08:54 09/04/22 08:54 09/04/22 08:54 09/04/22 08:54 Lab Results Blood Type / Crossmatch: No Data to Display Complete Blood Count: White Blood Count 5.87 10^3/uL (4.4-10.8) 08/28/22 08:59 Red Blood Count 4.40 10^6/uL (4.36-5.78) 08/28/22 08:59 Hemoglobin 12.8 g/dL (13.5-17.5) L 08/28/22 08:59 Hematocrit 39.4 % (40.0-50.0) L 08/28/22 08:59 Platelet Count 269 10^3/uL (130-400) 08/28/22 08:59 Complete Metabolic Panel: Sodium 140 mmol/L (136-145) 08/28/22 08:59 Potassium 4.2 mmol/L (3.5-5.1) 08/28/22 08:59 Chloride 104 mmol/L (98-107) 08/28/22 08:59 Carbon Dioxide 29.1 mmol/L (21.0-32.0) 08/28/22 08:59 BUN 17 mg/dL (7-18) 08/28/22 08:59 Creatinine 1.1 mg/dL (0.70-1.30) 08/28/22 08:59 Est GFR (CKD-EPI 2020) 74.50 (mL/min/1.73m2) 08/28/22 08:59 Calcium 9.1 mg/dL (8.5-10.1) 08/28/22 08:59 Glucose 109 mg/dL (74-106) H 08/28/22 08:59 Liver Function Panel: No Data to Display Coagulation Panel: No Data to Display Cardiac Panel: No Data to Display Arterial Blood Gas: No Data to Display Venous Blood Gas: No Data to Display Pancreas Panel: No Data to Display Thyroid Panel: No Data to Display Infectious Disease: No Data to Display Blood Cultures: No Data to Display Toxicology Panel: No Data to Display Imaging and Studies Imaging and Studies Study information below may be from another EMR and interpreted by another provider. Please see original notes in EMR for more complete details. Stress Test Summary: 04/13:MPI negative for ischemia, 53%. fixed apical defect. Echocardiogram Summary: 09/19: LVEF 59%, trace TR. PAS 32 mmhg. Anesthesia Assessment and Plan Anesthesia History Personal History: No History of Anesthesia Complications Family History: No Family History of Anesthesia Complications Exercise Tolerance Exercise Tolerance: Metabolic Equivalents>4 Cardiac & Pulmonary Exam Cardiac Exam: Normal S1/S2 Heart Sounds Pulmonary Exam: Clear Bilateral Breath Sounds Implantable Cardiac Device Does patient have a Pacemaker or an ICD?: No Airway Exam Known Difficult Airway: No Mallampati Class: 3 Mouth Opening: Narrow (< 3cm) Thyromental Distance: Greater than 3 cm Facial Hair: Full Wei Neck Range of Motion: Limited ROM Neck Circumference: Thick Teeth Condition: Normal Dentition ASA Classification ASA Score: ASA 3 Emergency Case?: No NPO Status NPO Status: NPO Clears >2 hours, Solids >8 hours Anesthesia Plan Resuscitation Status: Full Code Anesthesia Technique: Spinal Anesthesia Airway Planned: Natural Airway Pain Management: Surgeon and patient request nerve block Monitors Used: Standard Monitors Preoperative Comments:: 67 yo male for TKA. allergy to chloraprep - states specifically the orange dye one. Sig PMHx: BMI 47, HTN (metoprolol), CAD ( ~ 2013. ABY x 2 to LAD), GERD, former smoker, occ EtOH. Previous Anes: - TKA with spinal (4 attempts), 4 midaz, prop at 50, occ ephedrine. - quad rupture, spinal (? 1 attempt), 5 midaz, prop/phenyl gtts. - knee scope, LMA5, relaxation needed. - colo, prop, natural airway, no issues.
--- NOTE | 2022-09-04 07:29 | W.PM.DS.N ---
Date of service: 09/04/22 Time of Service: 12:56 DS: Diagnosis Discharge Diagnosis (1) Primary osteoarthritis of left knee: Status: Acute Discharge Plan Disposition Patient Disposition: Home Condition: Good Discharge Details Reason For Visit: Left knee DJD Attending Provider: Dom Khan Primary Care Provider: Ajit Galo Home Meds and New Rx's Prescriptions: New acetaminophen 500 mg tablet 1,000 mg PO Q8H PRN Qty: 90 0RF Rx Instructions: Take two tablets up to every 8 hours as needed for pain aspirin 81 mg tablet,delayed release (DR/EC) 81 mg PO BID 30 Days Qty: 60 0RF docusate sodium [Colace] 100 mg capsule 100 mg PO BID Qty: 30 0RF pantoprazole 40 mg tablet,delayed release (DR/EC) 40 mg PO DAILY Qty: 30 0RF dexamethasone 4 mg tablet 4 mg PO DAILY Qty: 2 0RF Rx Instructions: Take one tablet once daily for two days oxycodone 5 mg tablet 5 mg PO Q4H PRN (Reason: severe post-operative pain) Qty: 18 0RF Rx Instructions: Take one tablet up to every 4 hours as needed for severe pain celecoxib [Celebrex] 100 mg capsule 100 mg PO BID 30 Days Qty: 60 0RF Continued diphenhydramine-acetaminophen [Tylenol PM Extra Strength] 25-500 mg tablet 1 tab PO QHS PRN [id number]-bor [id number] mg tablet 2 tab PO DAILY metoprolol succinate 50 mg tablet extended release 24 hr 50 mg PO DAILY Qty: 90 3RF telmisartan 40 mg tablet 40 mg PO DAILY Qty: 90 3RF atorvastatin 80 mg tablet 80 mg PO DAILY Qty: 90 4RF tamsulosin 0.4 mg capsule 0.4 mg PO DAILY Qty: 30 2RF multivitamin 1 EACH tablet 1 tab PO daily prn nitroglycerin [Nitrostat] 0.4 mg tablet, sublingual 0.4 mg Sublingual q 5 mins MDD 3 PRN (Reason: chest pain) Qty: 25 0RF Rx Instructions: contact MD if 2 tabs or more are needed for relief Discontinued aspirin [Aspirin Low-Strength] 81 mg tablet,chewable 1 tab PO DAILY Patient Comments: 03/03/19 81 mg daily. si No Action gabapentin 300 mg capsule 300 mg PO QHS Qty: 14 0RF Rx Instructions: Take one tablet nightly Discharge Instructions Additional Instructions: Total Knee Discharge Instructions Activity: The most important activity is to walk and to work on gentle motion (both flexion and extension). You should try to take short walks a few times a day. It is important that when resting you work on keeping the knee straight. Avoid putting a pillow behind the knee as this will encourage flexion. Work on range of motion exercises as provided by Physical Therapy. - Start outpatient physical therapy within 2 weeks. - You should wear the NAEEM hose on both legs for 2 weeks. You may remove these at night. You may also use any compression sock in place of the NAEEM hose. - Utilize [employer] to review exercises, see videos on exercises and obtain basic information pertaining to your surgery and your recovery. Dressing: Remove the Carl wrap by 2 days after your surgery and put on the NAEEM stocking given to you from the hospital. Keep the surgical dressing (underneath the CARL wrap) in place for at least one week. After the first week it may be removed and replaced with light gauze and tape or nothing. The wound and dressing may get wet after 3 days but avoid soaking the dressing or otherwise it will need to be changed. Many people prefer covering the dressing with cling wrap (saran wrap) to minimize it from getting soaked. If it gets wet, just pat dry. If it starts to peel off then it will need to be changed. Medications: - You should take Tylenol and anti-inflammatory Celebrex as your primary pain control medications. If the Celebrex is too expensive or not covered, please call the office for another alternative (Advil/Ibuprofen or Naproxen/Aleve) - You have been prescribed a stronger pain medication Oxycodone for breakthrough pain, take as needed as prescribed. - You have also been prescribed a stomach acid reduction agent Pantoprozole to help reduce stomach acid and reflux. - You have been prescribed Gabapentin to take at night for restlessness and nerve pain. - You will be taking Aspirin 81mg twice a day for DVT prevention unless instructed otherwise. - You have also been prescribed Decadron to take to control post-operative nausea and pain. You will start this tomorrow. - If you have constipation you should take Colace (which has been prescribed) or Miralax (which is available [id number]). It takes most people 3-4 days to have a bowel movement. Follow-up: 2 weeks If you have any acute concerns or questions, please do not hesitate to contact the office at [phone]. You may contact Dr. Khan with any questions after hours through the hospital at [phone] or on his cell phone at [phone]. Stand Alone Forms: Anesthesia Discharge Inst., Candace.Nerve Block Instructions, Ashish Rodriguez ([facility]) Referrals: Dom Khan MD [ [facility] STAFF PHYSICIAN] - 09/17/22 1:45 pm Equipment/Supplies: Walker Activity:: Elevate Remove Dressings/Wound Care:: Do Not Remove Shower/Bathe:: Cover Diet:: As Tolerated Discharge Orders Discharge Orders: Discharge Order (Routine); Ordered 09/04/22 Ordered By: Dom Khan Discharge Data Discharge Date/Time-TO BE ENTERED AT DEPARTURE: 09/04/22 16:16 DS: Summary Time Spent with Patient providing and/or coordinating discharge services: Less than 30 minutes Status at Discharge Functional status at discharge: uses cane/walker Overall status at discharge: patient is progressing back to baseline Mental Status: mental status grossly normal Speech and Movement: speech and movement normal Mood: congruent mood Affect: normal affect Exam Psych Mental Status: mental status grossly normal Speech and Movement: speech and movement normal Mood: congruent mood Affect: normal affect DS: Data Vitals/I&O Vitals and I&O: Intake & Output 09/03/22 09/03/22 09/04/22 11:59 23:59 11:59 Weight 314 lb 314 lb PFSH All Active Problems Hyperlipidemia (Acute) Hypertension (Chronic) BPH w urinary obs/LUTS (Acute) Achilles tendonitis (Acute) Primary osteoarthritis of left knee (Acute) Steroid injection: 04/20/2021, 10/13/2021 Skin tag, acquired (Acute) Tinnitus, bilateral (Acute) Sensorineural hearing loss of both ears (Acute) Chest pain (Acute 04/21/14) Coronary artery disease (Chronic 04/21/14) a. LAD 99% s/p two drug eluting stents b. Still 60% distal LAD lesion after those stents placed c. Left circumflex of 70, occlusion is still present, not treated d. 70% acute marginal lesion is present and not treated e. [facility] rehab 01/22/2014 to 04/14/2014 f. Echo done 12/27/13 showed severe hypokinesis of his mid apical and anteroseptal mejia with increased pulmonary pressures Morbid obesity (Chronic) 25 lb intentional weight loss since his heart attack H/O surgical procedure (Chronic) a. Right knee meniscus repair b. Tonsillectomy and adenoidectomy c. Varicocele repair d. Cardiac cath with drug eluting stent placement GERD (gastroesophageal reflux disease) (Chronic) Hard of hearing (Chronic) Right shoulder pain (Chronic) chronic and recurrent, no surgeries or interventions History of tobacco use (Chronic) 60+ pack years of smoking from age [age], 2+ packs per day Status post total right knee replacement (Acute) Right TKA - DOS: 08/27/17 Repair of ruptured right quadricep tendon - DOS: 10/08/17 Arthroscopic synovectomy, lysis of adhesions and manipulation under anesthesia of right knee-DOS: 05/02/18 Dizziness (Acute) Encounter for screening colonoscopy (Acute) H/O non-ST elevation myocardial infarction (NSTEMI) (Chronic 12/26/13) Obstructive sleep apnea (Chronic) Well adult (Acute) CARL-inhibitor cough (Acute) Medical History Torn meniscus Surgical History Debridement, Limited RIGHT KNEE scope 1979 History of coronary artery stent placement 2013 Repair of right knee quadriceps DR. KHAN-10/08/17 Replacement of total knee joint 08/28/17 (R) Status post arthroscopy of right knee Arthroscopic synovectomy, lysis of adhesions, and manipulation under anesthesia DOS: 05/02/18 Status post scrotal varicocelectomy Status post tonsillectomy and adenoidectomy VARICOCELE REPAIR Family History Mother Diabetes Essential hypertension Heart disease Father , AGE 77 Cancer Sister Diabetes Heart disease Sister No problems noted. Sister No problems noted. Sister No problems noted. Brother , AGE 57 No problems noted. Brother No problems noted. Son No problems noted. Son No problems noted. Daughter No problems noted. Maternal Grandfather No problems noted. Paternal Grandfather No problems noted. Maternal Grandmother No problems noted. Paternal Grandmother No problems noted. Social History Smoking/Tobacco Use Status: Former Tobacco Use Quit Date: 07/01/89 Tobacco: How many years used: 25 Quit status: has quit before Counseling given: other Smoking risk assessment performed?: Yes Alcohol Intake: current Alcohol Intake frequency: a few times a week Alcohol type: wine Drug use: Never Substance use type: does not use Counseling given: No Counseling provided: none Caregiver/Support person: No Household members: spouse Housing: house Communication Needs: Hard of Hearing Pets and animals: No Sexually active: No Do you think of yourself as: straight/heterosexual Current gender identity: male What is your relationship status?: How often do you talk on the phone with friends or family?: decline to answer How often do you get together with friends or relatives?: decline to answer How often do you attend roman catholic or rastafarian services?: decline to answer Do you belong to any clubs or organized social groups?: decline to answer Panel score (0-1 are the most socially isolated patients): 1 What type of physical activity do you participate in: none Frequency: does not exercise Nicole/L[employer] Day: [employer]ism Special nicole needs: No Seatbelt use: always Drive intox or ride w/intox 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
[2022-09-04] MEDS: Celecoxib 200 MG CAP 400 MG PO (09:17)
[2022-09-04] MEDS: Acetaminophen 500 MG TAB 1000 MG PO (09:17)
[2022-09-04] MEDS: Gabapentin 300 MG CAP PO (09:18)
[2022-09-04] MEDS: Lactated Ringers 1,000 ML 80 ML IV (09:35)
--- NOTE | 2022-09-04 10:01 | ANES.NERVE_ITS ---
Nerve Block Single Injection Procedure Date and Time Date Performed: 09/04/22 Procedure Start: 09:52 Location Where Procedure Performed Procedure Location: Day Surgery Unit Reason Performed: Postoperative Analgesia Requesting Provider: Dom Khan Timeout Performed Timeout Performed: Yes Monitoring Used ECG, Blood Pressure and SpO2 Sterility Sterility: Hand Hygiene, Surgical Cap, Surgical Mask, Sterile Gloves and Chlorhexidine (no dye) Sedation Given During Procedure Sedation Given (Indicate Dose Given): Versed IV Dose:: 3 mg Patient Mental Status Patient Mental Status: Sedate with meaningful communication Nerve Block 1st Nerve Block: Laterality: Left Block Type: Adductor Canal Ultrasound Image Saved?: Yes Needle / Catheter Used: 120mm SonoPlex II Local Anesthetic Bolus (Indicate Dose Given): Injected in 3-5ml increments after negative blood aspiration and Bupivacaine 0.375% Dose:: 10 mL Additives (Indicate Dose Given): None Ultrasound: Sterile probe cover and gel used Nerve Stimulator: Supplement to Ultrasound use and No twitch or parasthes ia noted < 0.5 mA Paresthesia: None Procedure Tolerated: No Complications Procedure Outcome: Successful Performed By: Adrián Siu
[2022-09-04] MEDS: ceFAZolin 3,000 MG in Normal Saline 100 ML 200 MG IVPB (11:04)
[2022-09-04] MEDS: HYDROmorphone 2 MG/ML SYR IVP ×2 (13:05→13:20)
[2022-09-04] MEDS: Normal Saline 10 ML VIAL IJ (13:05)
--- NOTE | 2022-09-04 13:08 | ROE_ITS ---
Date of service: 09/04/22 Time of Service: 12:30 Operative Note Operative Note DATE OF PROCEDURE: 09/04/22 PRE-OP DIAGNOSIS: Left Knee Osteoarthritis POST-OP DIAGNOSIS: same PROCEDURE: Left Total Knee Replacement SURGEON: Dom Khan FURNACE COMBINATION ANALYST: Cira Clark ANESTHESIA TYPE: Spinal Refer to Anesthesia Record ESTIMATED BLOOD LOSS: 300 PATHOLOGY: none sent TOURNIQUET TIME: 0 COMPLICATIONS: None Patient was transported to: PACU Patient's condition: stable Implants: 1. Depuy Attune Cementless Cruciate Retaining Femoral Component, Size 7 2. Depuy Attune Cementless Fixed Bearing Tibial Component, Size 7 3. Depuy Attune 7x8mm CR/FB Poly 4. Depuy Attune Patellar Component, Size 38 Indications: I have seen Ortiz in clinic for symptoms of knee arthritis, confirmed with radiographic findings. He has exhausted nonoperative methods and was having significant limitations in daily function and desired better function and less pain. I discussed the technical details of a knee replacement. I explained the risks of the procedure to include, but not limited to, bleeding, infection, pain, stiffness, fracture, damage to nerves and vessels, damage to muscles and tendons, loosening, need for repeat procedure, blood clot and cardiopulmonary demise. Despite these risks, Ortiz elected to proceed. Findings: There was significant signs of arthritis throughout the knee, most focused in the medial compartment. Procedure Description: Ortiz was greeted in the preoperative holding area where the correct side was identified and marked. The consent was reviewed with the patient and signed. The history and physical was updated. All questions were answered. Preoperative medications were administered: Acetaminophen 1000mg, Celebrex 400mg, and Gabapentin 300mg. An adductor canal block was then administered by the anesthesia team in the PACU. Ortiz was taken back to the operating room. A spinal anesthestic was then administered. The patient was placed into the supine position on the operating room table. A nonsterile tourniquet was placed high onto the leg but only used for cementing. Posts were placed for positioning during the procedure. All bony prominences were well padded. Prophylactic antibiotics in the form of Cefazolin were administered. 1g of Tranxemic Acid was given intravenously within 30 minutes of incision. The left leg was then prepped with Chloraprep and draped in a standard fashion with impervious stockinette. A second prep with Chloraprep was performed prior to application of Iodine impregnated skin protection. A timeout to confirm correct identity, side and site, procedure, allergies, anesthesia, and medical concerns was performed. With the knee in some flexion, a midline incision was made overlying the knee. Full thickness skin flaps were raised once the extensor mechanism was encountered. These were raised medially and laterally. Any bleeding was controlled with electrocautery. Once the extensor mechanism was fully exposed, a medial parapatellar arthrotomy was performed in a flexed position. All bleeding from the arthrotomy and the geniculate arteries was coagulated. A medial subperiosteal peel was performed with electrocautery to the midcoronal plane. Due to the significant varus deformity the entire medial tibial plateau was exposed. The fat pad was removed while keeping the patellar tendon protected. The anterior distal femur synovium was removed for later visualization. The ACL and PCL were resected and the anterior horn of the lateral meniscus was transected. The knee was then flexed with the patella everted. Large osteophytes from the tibia were removed. Large osteophytes from the femur were removed. Using a step drill, and based on preoperative templating, the femoral canal was entered. This was done with a step drill without any difficulty. The intramedullary distal femoral cut guide was inserted, set to a 5 degree valgus cut and 9mm cut thickness. The distal femoral cut guide was then held in position and pinned. With the soft tissues protected, the distal cut was performed. This was passed over a few times to ensure a planar cut. I then tu rned attention to the tibia. The extramedullary guide was placed onto the leg. The distal aspect was slid medial to adjust for position of center of ankle and stay in line with shaft of the tibia. Approximately 3-5 degrees of posterior slope was kept in the proximal cutting guide. The center of the guide was aligned with the PCL. The stylus was used to assess cut thickness. The medial side, most involved side, was set for a 4mm cut. This was then held in position and pinned into place with 2 additional pins and a cross pin for stability. The medial and lateral collateral ligaments were protected and the cut was performed. With this completed, it was assessed and noted to be of appropriate dimensions. The guide was removed. A spacer block was inserted and the knee was brought into extension. The 7mm spacer block provided full extension, without hyperextension and with stability of both the medial and lateral collateral ligaments was assessed. The pins from the femur and the tibia were then removed. The distal femur was then sized. The anterior stylus was placed onto the lateral ridge of the anterior femur. This indicated a size 7 femur. The external rotation of the guide was adjusted to 3 degrees to match the epicondylar axis, perpendicular to Orland?s line. The 4-in-1 cutting guide was the placed. The posterior medial femur cut was evaluated and appeared of good thickness. The spacer block was inserted underneath the cutting guide and stability was confirmed in 90 degrees of flexion. An luma wing was used to confirm appropriate position of the anterior cut to avoid notching. This cutting guide was ensured to be flush on the cut surface and then pinned into place with headed pins. While protecting the soft tissues, quad tendon, and collateral ligaments, the anterior and posterior cuts were performed with a saw. The central two pins were removed and the posterior and anterior chamfers were cut next. The notch-cutting guide was placed. This was pinned to lateralize the femoral component as much as possible while keeping it flush on the cut surface. This was then pinned into position. A reciprocating saw was used to make the notch c ut. A rasp smoothed the cut surfaces. The medial and lateral menisci were removed. A trial femoral component was then inserted, impacted down to the cut surfaces, and the lug holes were drilled. A provisional trial tibial component was placed and the knee was brought through range of motion. There was noted to be excellent extension and flexion. There was no significant instability. The polyethylene was trialed until there was good flexion and extension with excellent stability to the medial and lateral collaterals. The patella was tracking without thumbs. A size 8mm polyethylene component provided the best range of motion and stability with less than 2mm gapping with medial and lateral stress and full extension without significant hyperextension. The tibial cut surface was fully exposed. The tibia was then sized as a 7. The tibia had been previously marked during trialing to correspond to the center of the tibial component to help with rotation. The trial was aligned to this melody, approximately rotated to the medial 1/3rd of the tibial tubercle. The trial was pinned into place. The tibia was prepared with a reamer and a keel punch and lug holes. The knee was then brought into extension and the patella was measured as 30mm. Using the patellar clamp and cut guide, this was resected to a flat surface with at least 13mm of thickness remaining. The size 38 patella fit the best. This was oriented and then clamped into position. The lugs were drilled. The trial components were removed. The final components were opened on the back table. The periosteal and capsular tissues, especially posteriorly, around the knee were then systematically injected with a periarticular cocktail consisting of 246mg of Ropivacaine, 0.5mg of Epinephrine, 0.08mg of Clonidine, and 30mg of Ketorolac, diluted to 100cc. On the back table, with the implants opened, the cement was mixed. One batch of high viscosity cement was prepared with vacuum assistance. After the cement was ready a small amount was placed on the cut surface of the patella and the patellar button was clamped into position and held. While the cement was hardening, the cementless knee components were placed. Starting with the tibial component, the tibia was subluxed anteriorly and the lug holes of the component were lined up. The tibia was then impacted with an impactor and mallet until the tibial component was in contact with the tibia. The final polyethylene component was inserted. Then, the femoral component was inserted. The lug holes were aligned and the component was impacted into position. The knee was irrigated with Surgiphor Betadine solution. This was allowed to sit in the knee for 3 minutes and then it was irrigated out with saline. After the cement had finally cured, approximately 15min, the clamp was removed from the patella and the knee was taken through range of motion. The patella was tracking with a no-thumbs technique. The capsule was then reapproximated with a No. 2 Fiberwire at multiple locations. The capsule was finally closed with a No. 2 Stratafix, barbed suture. The second dosing of 1g TXA was started. Deep tissues were then reapproximated with 0 Vicryl and 2-0 Monocryl. The skin was closed with a running 3-0 Monocryl in a subcuticular fashion. This was reinforced with skin glue. A Mepilex silver dressing was applied along with a [id number] STELLA wrap. A CryoCuff was applied. Chip was transferred to the hospital bed without difficulty an suffering no apparent complication. Chip has a good prognosis. Physical therapy will start today and without restrictions, weight-bearing as tolerated. Aspirin 81mg BID will be used for DVT prophylaxis.
--- NOTE | 2022-09-04 13:31 | W.ANESPOSTOP ---
Postoperative Evaluation Date, Time and Location Date Performed: 09/04/22 Time Performed: 13:31 Patient Location: PACU Vital Signs Most Recent Imported Vital Signs: Most Recent Vital Signs Temp Pulse Resp BP Pulse Ox 36.4 C L 73 18 109/59 L 94 09/04/22 13:20 09/04/22 13:30 09/04/22 13:30 09/04/22 13:30 09/04/22 13:30 Pain Score Most Recent Pain Score: Most Recent Pain Score Pain Level 5 09/04/22 13:30 Assessment Mental Status: Awake (Alert & Oriented to Patient Baseline) Airway and Respiratory Function: Patent airway with normal (patient baseline) respiratory exam Cardiovascular Function: Hemodynamically Stable Hydration Status: Adequately Hydrated Nausea & Vomiting: No Nausea or Vomiting Pain: Pain is tolerable per patient Peripheral Nerve Block: Regional nerve block not resolved at time of post operative discharge
[2022-09-04] MEDS: oxyCODONE 5 MG TAB PO (13:59)
--- NOTE | 2022-09-04 16:26 | PT.INIE ---
Date of service: 09/04/22 Time of Service: 15:11 PT Notes Visit Reasons: Left knee DJD Physical Therapy Day Surgery Initial Evaluation Date: 09/04/2022 Referring Doctor: JAMISON Shaver PT Orders: PT CONSULT: S/P Ortho Surgery Precautions: WBAT on the L LE with AD. Patient Profile/Admitting Diagnosis: Ortiz is a 67-year-old male with degenerative degenerative joint disease of the left knee and status post left total knee arthroplasty on postoperative day 0. PMHX: Medical History?(Updated 08/28/22 @ 08:24 by Cira Clark) Torn meniscus Surgical History?(Updated 08/28/22 @ 08:39 by Cira Clark) Debridement, Limited RIGHT KNEE scope 1978 History of coronary artery stent placement 2013 Repair of right knee quadriceps DR. JOHNSON-10/08/17 Replacement of total knee joint 08/28/17 (R) Status post arthroscopy of right knee Arthroscopic synovectomy, lysis of adhesions, and manipulation under anesthesia DOS: 05/02/18 Thank you provide status post scrotal varicocelectomy Status post tonsillectomy and adenoidectomy VARICOCELE REPAIR Social History/Home Situation: Lives with in a private home with 3-4 steps to enter with rails on both sides that are far apart. 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 Equipment Owned/DME: Bilateral axillary crutches Subjective: Reports 5/10 pain in the right knee with weight bearing. Denies headache and chest pain. Complained of mild lightheadedness at start of ambulation activity that later resolved. Objective: General Observation: Supine in bed. Carl wraps to left LE. Cryocuff to left knee. Mental Status: Alert and oriented x4 Pain: 5/10 left knee with weightbearing ROM: Right Lower Extremity: Hip flexion WFL. Hip abduction WFL. Knee flexion limited 20 to 90 degrees. Knee extension -20 degrees. Ankle dorsiflexion WFL. Ankle plantarflexion WFL. Left Lower Extremity: Hip flexion WFL. Hip abduction WFL. Knee flexion WFL. Ankle dorsiflexion WFL. Ankle plantarflexion WFL. Strength: Right Lower Extremity: Hip flexors 5/5. Hip abductors 5/5. Knee flexors 5/5. Knee extensors 5/5. Ankle dorsiflexors 5/5. Ankle plantarflexors 5/5. Left Lower Extremity:Hip flexors 5/5. Hip abductors 5/5. Knee flexors 3-regularly /5. Knee extensors 3-/5. Ankle dorsiflexors 5/5. Ankle plantarflexors 5/5. Sensation: Intact as to pain and light touch in bilateral lower extremities Bed Mobility/Transfers: Supine to sit standby assist Sit to stand contact-guard assist Stand to sit standby assist Bed to chair standby assist Gait: 100 feet using front wheeled walker with step to gait pattern, standby assist. 30 feet using bilateral axillary crutches with three-point gait pattern, standby assist. Reported 5/10 pain in the left knee that later subsided to 3/10 at rest. Balance: Static Sitting: Normal Dynamic Sitting: Good Static Standing: Fair Dynamic Standing: Fair Special Tests: Mobility Limitations Standardized Measure [facility] AM-PAC 6 clicks Basic Mobility Inpatient Short Form: Raw Score: 22 CMS Score: 21% deficit Informed Consent/Education: Patient instructed in purpose of PT consult. Packet containing TKA exercise protocol has been given to patient. Education and training on initial set of exercises that can be done at home have been completed with patient. THERA EX: Supine quad sets x5 Supine heel slides x5 Supine ankle DF/PF x10 Supine small range SLR on the left side x5 Seated marches x10 Assessment: Chip requires the use of a front wheeled walker for all mobility ADL performance for adequate pain relief while maximizing independence and reduce simple risk. Patient presents with clinical signs and symptoms consistent with current/admitting diagnoses that have resulted to mobility limitations, gait instability, generalized weakness, and impairment of motor control as demonstrated by the following impairment level findings: 1. Decreased strength to left knee major muscle groups 2. Impaired standing balance 3. Limitation of joint range of motion in left knee Impairments are contributing to the following functional limitations: 1. Inability to safely ambulate without assistive device 2. Increase completion time for mobility ADL performance 3. Increased fall risk Patient is assessed as a [id number] moderate complexity based on the following: History: 67-year-old male with impairment level findings, functional limitations, and past medical history as indicated above Examination: Demonstrable impairment in strength, balance, and mobility level with underlying impairments and functional limitations as documented above Presentation: Evolving Decision Makin moderate complexity Goals: N/A. PT evaluation and 1-2 treatment sessions only for functional mobility training using recommended AD and for HEP instruction. Plan of Care/Treatment Plan: N/A. PT evaluation and 1-2 treatment session only for functional mobility training using recommended AD and for HEP instruction. DISCHARGE RECOMMENDATIONS: Home when medically cleared by orthopedic surgeon. Recommend outpatient PT services in order to optimize functional mobility outcomes and facilitate return to independent community ambulation as well as to vocational activities without an assistive device. TREATMENT CODE/TIME: 03533 x 20 minutes, 31366 x 30 minutes beginning at 15:11 PM. Thank you for the opportunity to participate in the care of this patient. Virginia Morocho PT, DPT, CLT [facility] [place], [place]
== END 2022-09-04 16:16 | disposition home or self-care (01) ==
PROVIDERS: PCP Family Medicine; Visit Provider Student in an Organized Health Care Education/Training Program
PROC: (CPT 27447; principal; 2022-09-04 11:15)
DX: M17.12 Unilateral primary osteoarthritis, left knee (principal)
CPT/HCPCS: 27447; 76942; 97162; 97530; J0690; J1100; J1170; J2250; J2370; J2405

== ENCOUNTER 2022-09-17 08:26 | Outpatient (CLI) | payer BC, SELFPAY ==
--- NOTE | 2022-09-17 08:15 | RT.EKG_ITS ---
APPROVED REPORT Exam: Resting ECG Reason for Exam: ASCVD Patient Location: O HR:99 bpm ECG Measurements Heart Rate 99 AXIS NM 152 P 26 QRSd 89 QRS 46 QT 343 T -17 QTc 441 Conclusion Sinus rhythm...normal P axis, V-rate 50- 99 Low voltage, precordial leads...precordial leads <1.0mV Borderline T abnormalities,
== END 2022-09-17 08:27 | disposition home or self-care (01) ==
LOC: DI.CARD 08:27
PROVIDERS: PCP Family Medicine; Visit Provider Internal Medicine Cardiovascular Disease
DX: I25.10 Atherosclerotic heart disease of native coronary artery without angina pectoris (principal); R94.31 Abnormal electrocardiogram [ECG] [EKG]
CPT/HCPCS: 93010

== ENCOUNTER 2022-09-17 10:16 | Outpatient (CLI) | payer BC, SELFPAY ==
--- NOTE | 2022-09-17 13:30 | DI.RAD_ITS ---
Exam(s) XR KNEE LT 1V EXAM: XR KNEE LT 1V CLINICAL HISTORY: 1ST POST OP L TKA. TECHNIQUE: 2D digital imaging was performed. COMPARISON: CR XR KNEE LT 3V AP,LAT,ERIN from 04/20/2021 CR XR STANDING ALIGNMENT from 09/17/2022 FINDINGS: Single lateral view Components of the prosthesis appear satisfactory on the lateral view with no fracture or loosening ev ident. IMPRESSION: Satisfactory appearance. DATA REPOSITORY: RADIATION DOSE DELIVERED:
--- NOTE | 2022-09-17 13:30 | DI.RAD_ITS ---
Exam(s) XR STANDING ALIGNMENT EXAM: XR STANDING ALIGNMENT CLINICAL HISTORY: 1ST POST OP L TKA. TECHNIQUE: 2D digital imaging was performed. COMPARISON: CR XR STANDING ALIGNMENT from 08/06/2022 FINDINGS: 3 views Compared 08/26/2022 there has been interval placement of a left knee prosthesis which appears satisfa ctory. There are now bilateral knee prostheses. Hips remain unremarkable in appearance. Ankles unchanged. Bone density normal. No osseous lesions IMPRESSION: As above. DATA REPOSITORY: RADIATION DOSE DELIVERED:
== END 2022-09-17 10:17 | disposition home or self-care (01) ==
LOC: DIORS 11-07 10:17
PROVIDERS: PCP Family Medicine; Visit Provider Student in an Organized Health Care Education/Training Program
DX: Z47.1 Aftercare following joint replacement surgery; Z96.652 Presence of left artificial knee joint
CPT/HCPCS: 73560; 77073

== ENCOUNTER 2022-09-18 12:33 | Outpatient (CLI) | payer BC, SELFPAY | END 2022-09-18 12:34 | disposition home or self-care (01) | PROVIDERS: PCP Family Medicine; Visit Provider Internal Medicine Cardiovascular Disease | DX: I25.10 Atherosclerotic heart disease of native coronary artery without angina pectoris (principal); R00.2 Palpitations | CPT/HCPCS: 93270 ==

== ENCOUNTER 2022-10-22 08:59 | Outpatient (CLI) | payer BC, SELFPAY ==
--- NOTE | 2022-10-22 09:09 | W.CARDEVENT ---
Date of service: 10/22/22 Time of Service: 09:09 Cardiac Event Recorder Referring Provider:: Fidel Diez Indications:: Palpitations Cardiac Event Note: This is a 30-day cardiac event monitor Rhythm throughout was sinus with an average heart rate of 69. Minimum was 47, maximum 140 There were no significant atrial or ventricular dysrhythmias There were no apparent patient symptoms
== END 2022-10-22 09:00 | disposition home or self-care (01) ==
LOC: CARDOPNVT 08:59
PROVIDERS: PCP Family Medicine; Visit Provider Internal Medicine Cardiovascular Disease
DX: R00.2 Palpitations (principal)

== ENCOUNTER 2023-02-28 11:55 | Outpatient (REF) | payer BC, SELFPAY ==
[2023-02-28 22:58] LABS: PSA, Screening 1.6 ng/mL (<=4.5)
== END 2023-02-28 11:56 | disposition home or self-care (01) ==
LOC: LBN 11:55
PROVIDERS: PCP Family Medicine; Visit Provider Nurse Practitioner Gerontology
DX: N40.1 Benign prostatic hyperplasia with lower urinary tract symptoms (principal); N13.8 Other obstructive and reflux uropathy; Z12.5 Encounter for screening for malignant neoplasm of prostate
CPT/HCPCS: 84153

== ENCOUNTER 2023-04-09 12:55 | Outpatient (REF) | payer BC, SELFPAY ==
--- NOTE | 2023-04-09 14:55 | LIPBX_PTH ---
PATIENT: Rick Mon LOC: [facility] U#:[id number] AGE/SX: 67/M ROOM: RE04/09/[address]: Sneha Em DNP : 1955 BED: DIS: 04/09/2023 SPEC #: [id number] RECD: 04/10/23 12:37 STATUS: DONELL REQ #: [id number] ODALIS: 04/09/23 14:[address]: Sneha Em DEPT: Surgical Specimen RECD BY: Alessandra Peters ENTERED: 04/10/23 12:38 SP TYPE: LIPBX OTHR DR: Ajit Galo MD Tissues: 2 - LIP BIOPSY/RESECTION Procedures: SKIN LEVEL 4 Comments: [id number] @ Originally on account #[id number] Req #[id number]
== END 2023-04-09 12:56 | disposition home or self-care (01) ==
LOC: LBN 12:55
PROVIDERS: PCP Family Medicine; Visit Provider Nurse Practitioner Gerontology
DX: L98.9 Disorder of the skin and subcutaneous tissue, unspecified (principal); C44.92 Squamous cell carcinoma of skin, unspecified
CPT/HCPCS: 88305

== ENCOUNTER 2023-07-12 08:09 | Emergency (ER) | payer OTHER, SELFPAY ==
[2023-07-12 08:11] VITALS: BP 134/66; PULSE 72; RESP 18; TEMP 35.3; O2SAT 98
--- OUTSIDE RECORDS SUMMARY | 2023-07-12 08:16 | XMS_ITS | Continuity of Care Document ---
Author Name Unknown Organization [facility] Address [address] [place] [address] Care Team Providers Care Teaching Fellow Name Role Phone Ajit Galo Primary Care Physician [phone] Encounter [facility] [id number] Date(s): 10/03/22 - 10/03/22 [facility] [address] [place] [address] Encounter Diagnosis SIMBA (obstructive sleep apnea)(Discharge Diagnosis) - 10/03/22 Discharge Disposition: Home or Self Care Attending Physician: Shayla Hargrove 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 TEAM LEADER Allergies, Adverse Reactions, Alerts Substance Reaction Severity Status lisinopril Cough Moderate Active ChloraPrep One-Step Unknown Active Assessment and Plan Future Appointments Functional Status 10/03/22 Other exposure to Infectious Disease Non e Medications acetaminophen 500 mg oral tablet 1,000 mg = 2 tab, Oral, every 8 hr, PRN as needed for fever, 0 Refill(s) Start Date: 09/26/22 Status: Ordered aspirin 81 mg oral delayed release tablet 162 mg = 2 tab, Oral, Daily, # 30 tab, 0 Refill(s) Start Date: 09/26/22 Status: Ordered atorvastatin 80 mg oral tablet 80 mg = 1 tab, Oral, Daily, # 90 tab, 0 Refill(s) Start Date: 09/26/22 Status: Ordered gabapentin 300 mg oral capsule 300 mg = 1 cap, Oral, every day at bedtime, # 30 cap, 0 Refill(s) Start Date: 09/26/22 Status: Ordered glucosamine/chondroitin/methylsulfonylmethane 375 mg-300 mg-237.5 mg oral capsule 2 cap, Oral, BID, # 120 cap, 0 Refill(s) Start Date: 09/26/22 Status: Ordered metoprolol succinate 50 mg oral capsule, extended release 50 mg = 1 cap, Oral, Daily, # 90 cap, 0 Refill(s) Start Date: 09/26/22 Status: Ordered nitroglycerin 0.4 mg sublingual tablet 0.4 mg = 1 tab, SL, every 5 min, PRN as needed for chest pain, # 100 tab, 0 Refill(s) Start Date: 09/26/22 Status: Ordered pantoprazole 40 mg oral delayed release tablet 40 mg = 1 tab, Oral, Daily, # 30 tab, 0 Refill(s) Start Date: 09/26/22 Status: Ordered telmisartan 40 mg oral tablet 40 mg = 1 tab, Oral, Daily, # 90 tab, 0 Refill(s) Start Date: 09/26/22 Status: Ordered Tylenol Extra Strength PM 500 mg-25 mg oral tablet 1 tab, Oral, every day at bedtime, PRN as needed for sleep, 0 Refill(s) Start Date: 09/26/22 Status: Ordered Problem List Condition Confirmation Course Effective Dates Status Health St atus Informant STELLA-inhibitor cough Confirmed Active Chest pain Confirmed Active Coronary artery disease Confirmed Active Dizziness Confirmed Active GERD (gastroesophageal reflux disease) Confirmed Active Status post knee replacement Confirmed Active Hard of hearing Confirmed Active Morbid obesity Confirmed Active Non-ST elevation SC (NSTEMI) Confirmed Active SIMBA (obstructive sleep apnea) Confirmed Active Right shoulder pain Confirmed Active History of tobacco abuse Confirmed Active Vital Signs Most recent to oldest [Reference Range]: 1 Peripheral Pulse Rate [60-100 bpm] 69 bp m (10/03/22 7:59 AM) Blood Pressure [90-140/60-90 mmHg] 151/8 1mmHg *HI* (10/03/22 7:59 AM) Weight 136.08 kg (10/03/22 7:59 AM) Weight Measured (lbs) 300.005 lb (10/03/22 7:59 AM) Height 172.72 cm (10/03/22 7:59 AM) Height/Length Measured (inches) 68 inch (10/03/22 7:59 AM) BSA Measured 2.56 m2 (10/03/22 7:59 AM) Body Mass Index 45.62 kg/m2 (10/03/22 7:59 AM) Neck Circumference 20 inch (10/03/22 7:59 AM) Social History Social History Type Response Tobacco Former tobacco user Tobacco Use:. quit in 1999 per day. Sex Polysomnography (sleep) study * Quinton Zaman M: PERFORM Event Display: Sleep Study Authored Date: Physician Outpatient Note * Shayla Hargrove EXECUTIVE TEAM LEADER: PERFORM Event Display: Office Clinic Note Physician Authored Date: [id number] RUBIA III, DEBORAH Bautista :1955 Age:67 years Sex:Unknown Visit Date:10/03/2022 Primary Care Physician: Ajit Galo MD Chief Complaint New Sleep Consult History of Present Illness Sleep Medicine New Patient Consult pleasant 67_ year old??male??who presents for sleep consultation at kind request of??Kiana Diez??MD ?? Past medical history includes??SC (2017),??hypertension,??hyperlipidemia, severe SIMBA,??obesity ?? PREVIOUS SLEEP EVALUATION:None?? Patient reports having had a previous sleep study done in [address] [facility].?? At that time he was hospitalized for SC??and was noted to have sleep apnea. ??He underwent a PSG??and patient reports his AHI 62/h. ??He??immediately??was placed on CPAP treatment??and initially struggled??getting??acclimated but eventually was able to use??his PAP machine nightly??with good benefit. ??His machine??was then recalled and there was a gap in his treatment for approximately 2 years??until he received??his??recalled replacement machine.?? He recently received his new machine??and has resumed CPAP treatment. ??He reports that he is due for??all??Pap supplies. ?? He is currently using DreamStation auto CPAP??4 to 20 cm H2O, fullface mask.?? DME is currently [facility]??in [place] but he would??like to change??to [facility] ?? CHIEF COMPLAINT/HISTORY OF PRESENT ILLNESS: Patients reports biggest problem with sleep is??waking up at night, not tolerating cpap all night due to ill fitting mask, ?? SLEEP SCHEDULE:??Bedtime _9??pm, Sleep onset latency??less than 30??Wakes up 2-3 times per night, nocturia, Able to fall back asleep within??up to few hours, Wake time 4_??am. Naps??None regularly. SLEEP ENVIRONMENT:No environmental disruptions identified.?? SLEEP QUALITY:Fair?? DAYTIME/NEUROCOGNITIVE FUNCTION:Low energy.??Problems with memory and mood?? SLEEP RELATED THOUGHTS/BEHAVIORS:Deny insomnia related thought patterns or behaviors.___?? SLEEP BREATHING: snores when not using cpap ____?? LEG SYMPTOMS:Deny RLS related symptoms___leg cramps??have disrupted??his sleep??once yearlyToss andturn at night.Sheets are messy after sleep.?? MOVEMENT SYMPTOMS:??No sleepwalking. DREAM SYMPTOMS:Deny dream enacting behavior..??Deny hypnogogic or hynopompic hallucinations..??No disturbing dreams.. WEAKNESS SYMPTOMS:Deny cataplexy related symptoms.Deny sleep paralysis.?? DRIVING:Deny drowsy driving._?? OTHER PERTINENT SYMPTOMS: when using cpap machine patient reports improvement quality of sleep, feel rested when he wakes and??more energy during the day.? left knee replacement surgery with Dr. Khan last month, recovery??well ?? PRODUCT/SUBSTANCE USE:??No smoking.??_.??No alcohol use.??No regular illicit drug use. 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 Review of Systems A 10-point REVIEW OF SYSTEM was obtained and reviewed, includes CONSTITUTIONAL, EYES, NOSE, THROAT,RESPIRATORY, HEART, GASTROINTESTINAL, UROLOGIC, MUSCULOSKELETAL, PSYCHIATRY, SKIN systems. Pertinent symptoms are discussed in history, otherwise negative.?? Recovering from left knee surgery last month, sometimes pain disrupts his sleep Physical Exam Vitals & Measurements HR:??69??(Peripheral)?? BP:??151/81?? SpO2:??96%?? HT:??172.72??cm?? WT:??136.08??kg?? BMI:??45.62?? BSA:??2.56?? General well appearing??stated??age, no acute distress,??obesebuild HEENT: atraumatic skull, anicteric RESPIRATORY: quiet respiration, able to speak in full sentences without dyspnea, no accessory muscle use, SKIN: no facial skin rash, no facial skin lesions PSYCHIATRIC: well groomed, fluent speech, good insight, linear thought process, good eye contact,_ NEUROLOGIC: alert, oriented, symmetric facial expression, ambulating with cane ?? Assessment/Plan 1.??SIMBA (obstructive sleep apnea)??G47.33 Pleasant 67-year-old male who was referred by his order management specialist, Rg Bruno MD??for new patient consult??and to??transfer his care from??[facility]??sleep.?? Patient reports having had a SC in 2017??for which??he was hospitalized for.?? During his hospitalized stay he was noted to have sleep apnea.?? Patient reports that he underwent PSG??and reports??his AHI 62/h??associated with nocturnal hypoxemia.?? He??does not recall ever undergoing a titration study. ??He immediately started CPAP treatment??and once acclimated??to??Pap??therapy, he reports benefiting from treatment. ??Unfortunately his CPAP machine was recalled??and ??subsequently had a 2-year gap in??CPAP treatment. ??He notes during that??time??his sleep related symptoms returned such as snoring??and waking up gasping for air.?? He recently received his replacement machine from [employer]??and is currently using auto CPAP 4 to 20 cm??H2O??with a full facemask. ??He reports??feeling air hunger when he first puts his machine on at night??but denies any??pressure intolerance??or air leakage. ??He is??overdue for??all his PAP??supplies??to be replaced. ??He has requested??the change in DME??and therefore an order was placed to??[facility]??forall new PAP supplies??as well as mask refit.?? He does continue to wake up 2-3 times during the night??to void.?? He also??is currently??wearing a Zio patch??as he noted??2 episodes??of atrial fib??that occurred during the night??according to his Fitbit. ?? Today I reviewed his download data??that shows??CPAP mean pressure 7.7 cm H2O,??peak average pressure 12.8 cm H2O,??90% of the time pressure 11.3 cm H2O. ??He is benefiting from CPAP treatment??and his AHI??noted on his download is 2.8/h.?I adjusted his CPAP pressure in office today to auto CPAP??6 to 15 cm H2O. he will continue using??CPAP therapy. ??We did discuss??the possibility of scheduling a PSG titration study??in order to determine ideal CPAP pressures??and to ensure??that his nocturnal hypoxemia??and SIMBA??are adequately treated, especially given??his new questionable onset atrial fib.?? He is encouraged to increase his compliance??( decrease compliance due to recently receiving machine and mask fit )and will??follow-up in 1 month or sooner??if he has any questions or concerns. Ordered: Follow-Up Appointment Request CHRIS, *Est. 11/02/22 +/- 7 days, Future Order, one month compliance, In [facility] ?? I provided greater than??60??minutes in the care of this patient, more than half the time was spentin [id number] counseling. ?with comorbidities of SC (2017),??hypertension,??hyperlipidemia, severe SIMBA,??obesity ? Clinical Data Reviewed: [place] Sleepiness Scale: 09/21 ?? Machine download data [employer], Date range,??09/03/2022??to??10/02/2022; PAP settings:??auto cpap??4-20??cmH2O; days with usage greater than 4 hours:??20%; Average usage per day??for??hours,??1??mins;??mean/median p ressure??7.7/_cmH20;?90th/95th???tile pressure??11.3/_; average time in large leak Daily??5 minutes;??average AHI??2.8??/hr ? Sleep Clinical Timeline:?? 2017.?? PSG diagnostic. ??[facility].?? During hospitalization for MRI patient was noted to have??SIMBA.?? Patient reports??AHI 62/h??associated with significant??nocturnal hypoxemia. ??We have requested??hisoutside??PSG results??at associated medical records ?? 10/03/2022.?? New sleep consult, transfer of care, referred by his order management specialist Rg Bruno MD. patient benefiting from CPAP treatment, decreased compliance due to??mask fit,??order placed to??[facility] (change in DME, previously [employer]), mask fit??requested??along with new PAP supplies. ??CPAP pressures adjusted in office today to auto CPAP??6 to 15 cm H2O. consider??PSG titration ? Today's Assessment and Plan: see above Follow up: one month or sooner if needed. ? Referral Orders Referral Management, Medical Service: Other, Reason: [facility], patient has requested a change in DME please do mask refit changed cpap pressure in office today to auto cpap 6-15 cm, using Dreamstation 99 days/lifetime patient also needs all new pap supplies, Start: ... Problem List/Past Medical History Ongoing STELLA-inhibitor cough Chest pain Coronary artery disease Dizziness GERD (gastroesophageal reflux disease) Hard of hearing History of tobacco abuse Morbid obesity Non-ST elevation SC (NSTEMI) SIMBA (obstructive sleep apnea) Right shoulder pain Status post knee replacement Historical No qualifying data Medications acetaminophen 500 mg oral tablet, 1000 mg= 2 tab, Oral, every 8 hr, PRN aspirin 81 mg oral delayed release tablet, 162 mg= 2 tab, Oral, Daily atorvastatin 80 mg oral tablet, 80 mg= 1 tab, Oral, Daily gabapentin 300 mg oral capsule, 300 mg= 1 cap, Oral, every night at bedtime glucosamine/chondroitin/methylsulfonylmethane 375 mg-300 mg-237.5 mg oral capsule, 2 cap, Oral, BID metoprolol succinate 50 mg oral capsule, extended release, 50 mg= 1 cap, Oral, Daily nitroglycerin 0.4 mg sublingual tablet, 0.4 mg= 1 tab, SL, every 5 min, PRN pantoprazole 40 mg oral delayed release tablet, 40 mg= 1 tab, Oral, Daily telmisartan 40 mg oral tablet, 40 mg= 1 tab, Oral, Daily Tylenol Extra Strength PM 500 mg-25 mg oral tablet, 1 tab, Oral, every night at bedtime, PRN Allergies lisinopril??(Cough) ChloraPrep One-Step Social History Alcohol Current, Beer, Wine, 1-2 times per week Electronic Cigarette/Vaping Electronic Cigarette Use: Never. Home/Environment Lives with Spouse. Living situation: Home/Independent. Nutrition/Health Caffeine intake amount: 3 cus of coffee a day 1 can of soda a day. Substance Use Never Tobacco Former tobacco user Tobacco Use:. quit in 1999 per day. Electronically Signed on 10/03/22 09:13 AM Sugey GREENEShayla EXECUTIVE TEAM LEADER * Quinton Zaman: PERFORM Event Display: Office Clinic Note Physician Authored Date: [id number] * Quinton Zaman: PERFORM Event Display: Office Clinic Note Physician Authored Date: [id number] Patient Care team information Care Team Personnel Name: Ajit Galo MD Position: No Access Member Role: Primary Care Physician Address: Address: [address]
--- NOTE | 2023-07-12 08:45 | DI.RAD_ITS ---
Exam(s) XR WRIST LT COMPLETE EXAM: XR WRIST LT COMPLETE CLINICAL HISTORY: fall/pain. TECHNIQUE: 2D digital imaging was performed of the left wrist. Three images were obtained. PA, obl ique and lateral views were obtained. COMPARISON: No exams were available for comparison FINDINGS: BONES: No acute fracture is present. No bony destructive lesion is seen. JOINTS: The carpal bones are normally aligned. There are degenerative changes seen at the 1st [facility] harman nt. SOFT TISSUE: Normal. IMPRESSION: No acute fracture or dislocation. DATA REPOSITORY: RADIATION DOSE DELIVERED:
--- NOTE | 2023-07-12 08:45 | DI.RAD_ITS ---
Exam(s) XR KNEE LT 4V+ EXAM: XR KNEE LT 4V+ CLINICAL HISTORY: fall/pain, hx of replacement. TECHNIQUE: 2D digital imaging was performed. Four images were obtained. AP, PA tunnel, lateral and sunrise views were obtained. COMPARISON: CR XR STANDING ALIGNMENT from 09/17/2022 CR XR KNEE LT 1V from 09/17/2022 FINDINGS: BONES: There are stable post operative changes of a left total knee replacement present. No fracture or dislocation. JOINTS: The orthopedic hardware is in good position. No evidence of hardware loosening. SOFT TISSUE: Normal. IMPRESSION: No acute fracture or dislocation. DATA REPOSITORY: RADIATION DOSE DELIVERED:
--- NOTE | 2023-07-12 08:47 | W.ED.GENAD ---
HPI General Stated Complaint: Orthopedic Mode of arrival: ambulatory. BOOKER: 4 Date/Time Provider Initiated Documentation: 07/12/23 08:12. Limitations to Documentation: no limitations. Information obtained by: patient. History of Present Illness left knee and wrist pain - fall moderate 5 aching left, upper extremity and lower extremity reports no radiation minute(s) (30) constant Immobilization improves symptom(s), Movement worsens symptoms no other symptoms. none Related Data Home Medications Medication Instructions Recorded Confirmed multivitamin 1 tab PO daily prn 01/27/14 07/12/23 diphenhydramine 25 1 tab PO QHS PRN 07/24/19 07/12/23 mg-acetaminophen 500 mg tablet (Tylenol PM Extra Strength) nitroglycerin 0.4 mg sublingual 0.4 mg sublingual q 5 mins PRN 10/27/21 07/12/23 tablet (Nitrostat) chest pain #25 tabs atorvastatin 80 mg tablet 80 mg PO DAILY #90 tab-caps 08/16/22 07/12/23 metoprolol succinate 50 mg 50 mg PO DAILY #90 tabs 08/16/22 07/12/23 tablet,extended release 24 hr acetaminophen 500 mg tablet 1,000 mg (2 x 500 mg) PO Q8H PRN 09/04/22 07/12/23 pain #90 tabs aspirin 81 mg tablet,delayed 81 mg PO DAILY 11/29/22 07/12/23 release telmisartan 40 mg tablet 40 mg PO DAILY 03/19/23 07/12/23 metformin 500 mg tablet 500 mg PO BID #180 tabs 05/12/23 07/12/23 alfuzosin 10 mg tablet,extended 10 mg PO DAILY #90 tabs 05/30/23 07/12/23 release 24 hr Previous Rx's Medication Instructions Recorded nitroglycerin 0.4 mg sublingual 0.4 mg sublingual q 5 mins PRN 10/27/21 tablet (Nitrostat) chest pain #25 tabs atorvastatin 80 mg tablet 80 mg PO DAILY #90 tab-caps 08/16/22 metoprolol succinate 50 mg 50 mg PO DAILY #90 tabs 08/16/22 tablet,extended release 24 hr acetaminophen 500 mg tablet 1,000 mg (2 x 500 mg) PO Q8H PRN 09/04/22 pain #90 tabs metformin 500 mg tablet 500 mg PO BID #180 tabs 05/12/23 alfuzosin 10 mg tablet,extended 10 mg PO DAILY #90 tabs 05/30/23 release 24 hr Allergies Allergy/AdvReac Type Severity Reaction Status Date / Time lisinopril AdvReac Mild cough Verified 07/12/23 08:15 chloraprep Allergy Severe Skin Rash Uncoded 07/12/23 08:15 Review of Systems Musculoskeletal Musculoskeletal: Denies deformity, Denies numbness and Denies tingling Integumentary/Breasts Skin/Breast: Denies rash Neurologic Neurologic: Denies numbness and Denies tingling PFSH All Active Problems (Updated 07/12/23 @ 10:08 by JAMISON [place]) Left wrist sprain (Acute) Contusion of left knee (Acute) Dysplastic skin lesion (Acute) Diabetes mellitus (Chronic) Hyperglycemia (Acute) History of total left knee replacement (Acute 09/04/22) Palpitations (Acute) Hyperlipidemia (Acute) Hypertension (Chronic) BPH w urinary obs/LUTS (Acute) Achilles tendonitis (Acute) Skin tag, acquired (Acute) Tinnitus, bilateral (Acute) Sensorineural hearing loss of both ears (Acute) Chest pain (Acute 04/21/14) Coronary artery disease (Chronic 04/21/14) a. LAD 99% s/p two drug eluting stents b. Still 60% distal LAD lesion after those stents placed c. Left circumflex of 70, occlusion is still present, not treated d. 70% acute marginal lesion is present and not treated e. [facility] re[facility] 01/22/2014 to 04/14/2014 f. Echo done 12/27/13 showed severe hypokinesis of his mid apical and anteroseptal mejia with increased pulmonary pressures Morbid obesity (Chronic) 25 lb intentional weight loss since his heart attack H/O surgical procedure (Chronic) a. Right knee meniscus repair b. Tonsillectomy and adenoidectomy c. Varicocele repair d. Cardiac cath with drug eluting stent placement GERD (gastroesophageal reflux disease) (Chronic) Hard of hearing (Chronic) Right shoulder pain (Chronic) chronic and recurrent, no surgeries or interventions History of tobacco use (Chronic) 60+ pack years of smoking from age [age], 2+ packs per day Status post total right knee replacement (Acute) Right TKA - DOS: 08/27/17 Repair of ruptured right quadricep tendon - DOS: 10/08/17 Arthroscopic synovectomy, lysis of adhesions and manipulation under anesthesia of right knee-DOS: 05/02/18 Dizziness (Acute) Encounter for screening colonoscopy (Acute) H/O non-ST elevation myocardial infarction (NSTEMI) (Chronic 12/26/13) Obstructive sleep apnea (Chronic) Well adult (Acute) STELLA-inhibitor cough (Acute) Medical History Torn meniscus Surgical History Debridement, Limited RIGHT KNEE scope 1978 History of coronary artery stent placement 2014 Repair of right knee quadriceps DR. KHAN-10/08/17 Replacement of total knee joint 08/28/17 (R) Status post arthroscopy of right knee Arthroscopic synovectomy, lysis of adhesions, and manipulation under anesthesia DOS: 05/02/18 Status post scrotal varicocelectomy Status post tonsillectomy and adenoidectomy VARICOCELE REPAIR Family History Mother Diabetes Essential hypertension Heart disease Father , AGE 77 Cancer Sister Diabetes Heart disease Sister No problems noted. Sister No problems noted. Sister No problems noted. Brother , AGE 57 No problems noted. Brother No problems noted. Son No problems noted. Son No problems noted. Daughter No problems noted. Maternal Grandfather No problems noted. Paternal Grandfather No problems noted. Maternal Grandmother No problems noted. Paternal Grandmother No problems noted. Social History Smoking/Tobacco Use Status: Former Tobacco Use Quit Date: 07/01/89 Tobacco: How many years used: 25 Quit status: has quit before Counseling given: other Smoking risk assessment performed?: Yes Alcohol Intake: current Alcohol Intake frequency: a few times a week Alcohol type: wine Drug use: Never Substance use type: does not use Counseling given: No Counseling provided: none Caregiver/Support person: No Household members: spouse Housing: house Communication Needs: Hard of Hearing Pets and animals: No Sexually active: No Do you think of yourself as: straight/heterosexual Current gender identity: male What is your relationship status?: How often do you talk on the phone with friends or family?: decline to answer How often do you get together with friends or relatives?: decline to answer How often do you attend presybeterian or alevism services?: decline to answer Do you belong to any clubs or organized social groups?: decline to answer Panel score (0-1 are the most socially isolated patients): 1 What type of physical activity do you participate in: none Frequency: does not exercise Nicole/Jew: Mormon Special nicole needs: No Seatbelt use: always Drive intox or ride w/intox regional driver: No Do you feel safe at home: Yes Do you feel safe in your relationship?: Yes Additional Social history: Unable to assess privately PAWSS Have you Been Recently Intoxicated or Drunk Within the Last 30 days?: No Have you Ever Experienced Previous Episodes of Alcohol Withdrawal?: No Have you ever Experienced Withdrawal Seizures?: No Have you ever Experienced Delirium Tremens(DT)s?: No Have you ever undergone Alcohol Rehabilitation Treatment (i.e, inpt ot outpatient treatment programs)?: No Have you ever Experienced Blackouts?: No Have you ever Combined Alcohol with other Downers within the last 90 days?: No Have you ever Combined Alcohol with any other Substance of Abuse during the last 90 days?: No Positive Blood Alcohol level on Presentation? [PCS.BAL]: No Evidence of Increased Autonomic Activity (i.e. HR>120, tremor, sweating, agitation, nausea)?: No Result: 0 Exam Const General: cooperative, healthy appearing and comfortable [facility] Head: atraumatic Extrem Other: Left wrist exam: Visual inspection without erythema, ecchymosis, swelling, obvious deformity. Skin is intact. Full range of motion. There is mild to moderate discomfort over the ulnar styloid. No crepitus. Normal radial pulse and capillary refill. Elbow and hand unremarkable. Left knee exam: Visual inspection reveals a well-healed surgical incision without erythema, ecchymosis, obvious deformity. There is an anterior lateral abrasion noted. Active range of motion yields near full extension, flexion to about 115 degrees. Knee is stable to varus and valgus stress without significant discomfort. Negative anterior draw. Course Vital Signs Vital signs: Vital Signs Temperature 35.3 C L 07/12/23 08:11 Pulse 72 07/12/23 08:11 Respiratory Rate 18 07/12/23 08:11 Blood Pressure 134/66 07/12/23 08:11 Pulse Oximetry 98 07/12/23 08:11 Temperature 35.3 C L 07/12/23 08:11 Temperature Source Temporal Artery Scan 07/12/23 08:11 Pulse 72 07/12/23 08:11 Respiratory Rate 18 07/12/23 08:11 Respiratory Effort Normal, Non-Labored 07/12/23 08:16 Blood Pressure 134/66 07/12/23 08:11 Blood Pressure Position Sitting 07/12/23 08:11 Pulse Oximetry 98 07/12/23 08:11 Oxygen Delivery Method Room Air 07/12/23 08:11 Oxygen Flow Rate 0 07/12/23 08:11 Medical Decision Making 68-year-old gentleman who had a mechanical slip and fall at work landing on his left knee and wrist; status post left total knee replacement 09/04/2022. Patient appears well, nontoxic, no acute distress. No obvious orthopedic deformity. Plan to obtain x-ray of left wrist and knee X-ray of left knee ordered and reviewed. Reveals total knee replacement in good alignment with no lucencies or signs of loosening. No acute changes or fractures are noted. X-ray of the left wrist ordered and reviewed, reveals no evidence of acute bony abnormality. X-ray initially read by me but confirmed by radiology. Discussed in length with patient. Patient does not want a splint for his wrist. Knee feels stable, no indication for brace. I will CC this note to Dr. Khan given his history of total knee replacement. He is scheduled to be seen in August [address] Khan for his 1 year anniversary appointment. Patient encouraged to watch for new or evolving symptoms and return to the ER for any concerns. Standard discharge and return precautions were provided. Patient understands, is agreeable to this plan, and has no additional questions or concerns upon discharge. This documentation was generated using Getyoo dictation system, please disregard any oddities of phrase or misspellings. Medical Records Medical records reviewed: Yes I reviewed the patient's medical records. Quality:[facility] Health Related Social Needs: No Data to Display Discharge Plan Disposition Patient Disposition: Home Discharge Details Clinical Impression: Contusion of left knee, Left wrist sprain Primary Care Provider: Ajit Galo ED Provider: Reinaldo Soler Home Meds and New Rx's Prescriptions: Continued diphenhydramine-acetaminophen [Tylenol PM Extra Strength] 25-500 mg tablet 1 tab PO QHS PRN metoprolol succinate 50 mg tablet extended release 24 hr 50 mg PO DAILY Qty: 90 3RF atorvastatin 80 mg tablet 80 mg PO DAILY Qty: 90 4RF telmisartan 40 mg tablet 40 mg PO DAILY aspirin 81 mg tablet,delayed release (DR/EC) 81 mg PO DAILY alfuzosin 10 mg tablet extended release 24 hr 10 mg PO DAILY Qty: 90 1RF Rx Instructions: administer after the same meal each day multivitamin 1 EACH tablet 1 tab PO daily prn nitroglycerin [Nitrostat] 0.4 mg tablet, sublingual 0.4 mg Sublingual q 5 mins MDD 3 PRN (Reason: chest pain) Qty: 25 0RF Rx Instructions: contact MD if 2 tabs or more are needed for relief metformin 500 mg tablet 500 mg PO BID Qty: 180 3RF acetaminophen 500 mg tablet 1,000 mg PO Q8H PRN Qty: 90 0RF Rx Instructions: Take two tablets up to every 8 hours as needed for pain Discharge Instructions Instructions: Contusion in Adults (ED), Wrist Sprain (ED) Additional Instructions: X-ray of left knee and wrist were both reassuring, no acute bony abnormality. The surgical hardware left well-maintained. Rest, elevate, cool compresses every 2 hours for 20 minutes. Please watch for new or worsening symptoms and return to the ER for any concerns. Given your history of total knee replacement, I have CCed Dr. Khan to this note to make them aware of your follow-up. Otherwise follow-up with orthopedics at her 1 year anniversary appointment as already scheduled.
== END 2023-07-12 10:25 | disposition home or self-care (01) ==
PROVIDERS: Emergency Provider Physician Assistant; PCP Family Medicine
DX: S80.02XA Contusion of left knee, initial encounter (principal); S63.502A Unspecified sprain of left wrist, initial encounter; E11.9 Type 2 diabetes mellitus without complications; I10 Essential (primary) hypertension; E78.5 Hyperlipidemia, unspecified; I25.2 Old myocardial infarction; I25.10 Atherosclerotic heart disease of native coronary artery without angina pectoris; Z95.5 Presence of coronary angioplasty implant and graft; Z79.84 Long term (current) use of oral hypoglycemic drugs; Z96.652 Presence of left artificial knee joint; Z87.891 Personal history of nicotine dependence; Z79.82 Long term (current) use of aspirin
CPT/HCPCS: 99283; 73110; 73564

== ENCOUNTER 2023-08-01 15:36 | Outpatient (CLI) | payer OTHER, SELFPAY ==
--- NOTE | 2023-08-01 13:35 | DI.RAD_ITS ---
Exam(s) XR WRIST LT COMP NAVICULAR EXAM: XR WRIST LT COMP NAVICULAR CLINICAL HISTORY: left wrist injury. TECHNIQUE: 2D digital imaging was performed. COMPARISON: No exams were available for comparison FINDINGS: Four views. No evidence of acute fracture nor dislocation nor significant ulnar variance. Scaphoid and scapholun ate distance normal. There are degenerative changes at the 1st carpometacarpal joint including degen erative subarticular cysts in the base of the thumb metacarpal. Tiny benign cysts noted at the mid a spect of the capitate noted which is not clinically significant. IMPRESSION: No acute osseous findings in the wrist. DATA REPOSITORY: RADIATION DOSE DELIVERED:
== END 2023-08-01 15:37 | disposition home or self-care (01) ==
LOC: DIORS 15:37
PROVIDERS: PCP Family Medicine; Visit Provider Physician Assistant
DX: S69.92XA Unspecified injury of left wrist, hand and finger(s), initial encounter (principal); X58.XXXA Exposure to other specified factors, initial encounter
CPT/HCPCS: 73110

== ENCOUNTER 2023-08-22 15:00 | Outpatient (REF) | payer MEDICARE, SELFPAY ==
[2023-08-22 21:44] LABS: COMMENT (LAB VIEW ONLY) 123.74 mg/dL; Microalb ug/mg Crea 5.1 ug/mg Cr
== END 2023-08-22 15:01 | disposition home or self-care (01) ==
LOC: LBN 15:00
PROVIDERS: PCP Family Medicine; Referring Provider Family Medicine; Visit Provider Family Medicine
DX: E11.9 Type 2 diabetes mellitus without complications (principal)
CPT/HCPCS: 82043; 82570

== ENCOUNTER 2023-09-09 13:23 | Outpatient (CLI) | payer OTHER, SELFPAY ==
--- NOTE | 2023-09-09 12:45 | DI.RAD_ITS ---
Exam(s) XR KNEE LT 2V AP,LAT EXAM: XR KNEE LT 2V AP,LAT CLINICAL HISTORY: annual f/u L TKA. TECHNIQUE: 2D digital imaging was performed. Two images were obtained. AP and lateral views were ob tained. COMPARISON: CR XR KNEE LT 4V+ from 07/12/2023 FINDINGS: BONES: There are stable post operative changes of a left total knee replacement present. No fracture or dislocation. JOINTS: The orthopedic hardware is in good position. No evidence of hardware loosening. SOFT TISSUE: Dystrophic calcification is again seen inferior to the patella. IMPRESSION: Stable left total knee replacement. DATA REPOSITORY: RADIATION DOSE DELIVERED:
== END 2023-09-09 13:24 | disposition home or self-care (01) ==
LOC: DIORS 13:24
PROVIDERS: PCP Family Medicine; Visit Provider Student in an Organized Health Care Education/Training Program
DX: Z96.652 Presence of left artificial knee joint (principal); Z47.1 Aftercare following joint replacement surgery
CPT/HCPCS: 73560

== ENCOUNTER → 2023-10-25 09:17 | Outpatient (BNVA) | payer MEDICARE, SELFPAY | PROVIDERS: PCP Family Medicine; Referring Provider Family Medicine; Visit Provider Internal Medicine Cardiovascular Disease | DX: I25.10 Atherosclerotic heart disease of native coronary artery without angina pectoris (principal) | CPT/HCPCS: 99213 ==

== ENCOUNTER 2023-11-18 05:36 | Outpatient (CLI) | payer MEDICARE, SELFPAY ==
[2023-11-18 12:32] LABS: HCT 39.5 % (40.0-50.0); HGB 12.9 g/dL (13.5-17.5); MCH 30.1 pg (27.0-33.0); MCHC 32.7 % (32.0-36.0); MCV 92 fL (80-95); MPV 10.6 fL (8.0-11.0); Platelet Count 257 10^3/uL (130-400); RBC 4.28 10^6/uL (4.36-5.78); RDW 13.2 % (11.8-14.1); RDW-SD 44.8 fL; WBC 5.09 10^3/uL (4.4-10.8)
[2023-11-18 13:26] LABS: ALT 43 U/L (16-63); AST 22 U/L (15-37); Albumin 3.8 g/dL (3.4-5.0); Alkaline Phosphatase 67 U/L (46-116); BUN 17 mg/dL (7-18); Bilirubin, Total 0.7 mg/dL (0.2-1.0); CREATININE 0.9 mg/dL (0.70-1.30); Calcium 9.1 mg/dL (8.5-10.1); Calculated LDL 34 mg/dL (<100); Chloride 105 mmol/L (98-107); Cholesterol 85 mg/dL (<200); Estimated GFR 94.19 (mL/min/1.73m2); Glucose 94 mg/dL (74-106); HDL Cholesterol 38 mg/dL (40-60); Potassium 4.2 mmol/L (3.5-5.1); Sodium 140 mmol/L (136-145); Total Protein 7.2 g/dL (6.4-8.2); Triglyceride 68 mg/dL (<150)
== END 2023-11-18 05:37 | disposition home or self-care (01) ==
LOC: LOS 05:36
PROVIDERS: PCP Family Medicine; Visit Provider Family Medicine
DX: R10.9 Unspecified abdominal pain (principal); E78.5 Hyperlipidemia, unspecified; R53.83 Other fatigue
CPT/HCPCS: 36415; 80053; 80061; 85027

== ENCOUNTER → 2024-02-10 15:30 | Outpatient (BNVA) | payer MEDICARE, SELFPAY | PROVIDERS: PCP Family Medicine; Visit Provider Nurse Practitioner Gerontology | DX: N40.1 Benign prostatic hyperplasia with lower urinary tract symptoms (principal); R35.1 Nocturia; N13.8 Other obstructive and reflux uropathy; R60.9 Edema, unspecified | CPT/HCPCS: 51798; 99213 ==

== ENCOUNTER 2024-04-15 09:19 | Outpatient (CLI) | payer MEDICARE, SELFPAY ==
[2024-04-15 19:30] LABS: Hepatitis C Ab w Rflx HCV PCR Negative (Negative)
[2024-04-15 19:33] LABS: HIV-1/2 Ag & Ab Screen Negative (Negative)
== END 2024-04-15 09:20 | disposition home or self-care (01) ==
LOC: LOS 09:19
PROVIDERS: PCP Family Medicine; Referring Provider Family Medicine; Visit Provider Family Medicine
DX: Z87.891 Personal history of nicotine dependence (principal); Z00.00 Encounter for general adult medical examination without abnormal findings; E11.9 Type 2 diabetes mellitus without complications
CPT/HCPCS: 36415; 86803; 87389

== ENCOUNTER → 2024-04-30 13:14 | Outpatient (BNVA) | payer MEDICARE, SELFPAY | PROVIDERS: PCP Family Medicine; Visit Provider Internal Medicine Cardiovascular Disease | DX: I25.10 Atherosclerotic heart disease of native coronary artery without angina pectoris (principal) | CPT/HCPCS: 99213 ==

== ENCOUNTER → 2025-02-08 14:25 | Outpatient (BNVA) | payer MEDICARE, SELFPAY | PROVIDERS: PCP Family Medicine; Visit Provider Nurse Practitioner Gerontology | DX: N40.1 Benign prostatic hyperplasia with lower urinary tract symptoms (principal); N13.8 Other obstructive and reflux uropathy; R60.9 Edema, unspecified; R39.12 Poor urinary stream; R35.1 Nocturia; R35.0 Frequency of micturition | CPT/HCPCS: 99214; 51798 ==

== ENCOUNTER 2025-03-04 14:45 | Outpatient (CLI) | payer MEDICARE, SELFPAY ==
[2025-03-04 18:17] LABS: PSA, Diagnostic 1.4 ng/mL (<=4.5)
== END 2025-03-04 14:46 | disposition home or self-care (01) ==
LOC: LBO 14:45
PROVIDERS: PCP Family Medicine; Visit Provider Nurse Practitioner Gerontology
DX: N40.1 Benign prostatic hyperplasia with lower urinary tract symptoms (principal); N13.8 Other obstructive and reflux uropathy
CPT/HCPCS: 36415; 84153

== ENCOUNTER 2025-05-07 08:46 | Outpatient (CLI) | payer MEDICARE, SELFPAY ==
--- NOTE | 2025-05-07 08:45 | RT.EKG_ITS ---
APPROVED REPORT Exam: Resting ECG Reason for Exam: follow up needed Patient Location: O HR:58 bpm ECG Measurements Heart Rate 58 AXIS MS 177 P 18 QRSd 97 QRS 38 QT 411 T 6 QTc 404 Conclusion Sinus rhythm...normal P axis, V-rate 50- 99 Low voltage, precordial leads...precordial leads <1.0mV
== END 2025-05-07 08:47 | disposition home or self-care (01) ==
LOC: DI.CARD 08:59
PROVIDERS: PCP Family Medicine; Visit Provider Internal Medicine Cardiovascular Disease
DX: I10 Essential (primary) hypertension (principal); K21.9 Gastro-esophageal reflux disease without esophagitis
CPT/HCPCS: 93010

== ENCOUNTER → 2025-05-07 08:46 | Outpatient (BNVA) | payer MEDICARE, SELFPAY | PROVIDERS: PCP Family Medicine; Referring Provider Family Medicine; Visit Provider Internal Medicine Cardiovascular Disease | DX: I25.10 Atherosclerotic heart disease of native coronary artery without angina pectoris (principal); I10 Essential (primary) hypertension; K21.9 Gastro-esophageal reflux disease without esophagitis | CPT/HCPCS: 99213; 93005 ==